=== PATIENT | female | born 1985 | race Caucasian/White ===

== ENCOUNTER 2022-05-29 14:46 | Outpatient (RCR) | payer MEDICARE, MEDICAID, SELFPAY | END 2022-05-31 23:59 | disposition home or self-care (01) | LOC: HO.PHPA 14:46 | PROVIDERS: Visit Provider Psychiatry & Neurology Psychiatry | DX: F31.32 Bipolar disorder, current episode depressed, moderate (principal); F90.9 Attention-deficit hyperactivity disorder, unspecified type; F43.10 Post-traumatic stress disorder, unspecified ==

== ENCOUNTER 2023-12-12 19:33 | Inpatient (IN) | payer MEDICARE, MEDICAID, SELFPAY ==
[2023-12-12 19:47] VITALS: BP 125/98; PULSE 95; RESP 16; TEMP 36.6; O2SAT 97; BMI 26.6
--- OUTSIDE RECORDS SUMMARY | 2023-12-12 19:58 | XMS_ITS | Continuity of Care Document ---
Author Organization [facility] Dusty Bustamante Todd lt Address [address] [place] [address]- Care Team Providers Care Fabrication Specialist Name Role Phone Asa WILCOX, Rimma Valles Primary Care Physician Encounter [facility] [place] Date(s): 01/29/22 - 02/28/22 [facility] Adult [address] [place] [address]- Allergies, Adverse Reactions, Alerts Substance Reaction Severity Status Bactrim nausea and vomitting Active Immunizations Given and Recorded Vaccine Date Status Refusal Reason SARS-CoV-2 (COVID-19) mRNA BNT-162b2 vac 02/01/21 Recorded SARS-CoV-2 (COVID-19) mRNA BNT-162b2 vac 01/11/21 Recorded tetanus-diphtheria toxoids (Td) 1 06/06/19 Given influenza virus vaccine, inactivated 05/04/19 Give n influenza virus vaccine, inactivated 2 05/23/16 Re corded influenza virus vaccine, inactivated 05/30/14 Give n influenza virus vaccine, inactivated 3 05/03/13 Gi silverio influenza virus vaccine, inactivated 4 05/25/12 Gi silverio Influenza Virus Vaccine (oldterm) 5 06/03/11 Given FluLaval (oldterm) 05/31/10 Given Influenza Inactive (IM) (oldterm) 05/01/09 Given Tet/diphth/pertussis, acel (oldterm) 12/07/08 Give n diphtheria-tetanus toxoids (DT) 08/03/98 Given 1Result Comment: [id number] 2Result Comment: [06/30/2016] [facility] 3Admin Note: given at work 4Admin Note: AT WORK 10-12-12 5Admin Note: at work Medications Adderall 5 mg oral tablet See Instructions, Please take two tablets (10mg) in the morning and one tablet (5mg) in the afternoon. Can ONLY be refilled between 07/24/2017 - 08/31/2017, # 90 tablet, 0 Refills, Maintenance, 07/24/17 13:10:30, Tablet Start Date: 07/24/17 Status: Ordered cloNIDine 0.1 mg oral tablet 0.1 mg, 1, tablet, By Mouth, Daily at bedtime, # 30 tablet, Refills 2, Tot. Refills 2, Maintenance,06/29/17 10:52:55, Route to Pharmacy Electronically, [id number], [facility]/pharmacy #[id number] Start Date: 06/29/17 Stop Date: 09/27/17 Status: Ordered KlonoPIN 1 mg oral tablet 1 tablet = 1 mg, By Mouth, Daily, PRN Anxiety, FAX to pharmacy Take 1 tablet daily as needed for anxiety, # 30 tablet, 2 Refills, Maintenance, 06/12/17 12:04:14 Start Date: 06/12/17 Status: Ordered LaMICtal 100 mg oral tablet See Instructions, Please take 100mg tablet + 200mg tablet = 300mg daily for mood, # 30 tablet, Refills 0, Tot. Refills 0, Maintenance, 10/23/17 10:16:29, Instructions Replace Required Details, Route to Pharmacy Electronically, [id number] Start Date: 10/23/17 Status: Ordered LaMICtal 200 mg oral tablet See Instructions, Please take 200mg tablet + 100mg tablet = 300mg daily for mood, # 30 tablet, 2 Refills, Maintenance, 06/12/17 12:12:59 Start Date: 06/12/17 Status: Ordered lamotrigine 25 mg oral tablet 25 mg, 1, tablet, By Mouth, 2 times a day, Refills 0, Maintenance, 01/17/21 11:37:00 EDT, Partial fill upon patient request if the prescription is for a schedule II opioid drug. Start Date: 01/17/21 Status: Ordered Left and right cocup splints Left and right cocup splints, See Instructions, # 1 pair, Refills 0, Tot. Refills 0, Maintenance, DX: Carpal papitonel syndome, 06/06/19 12:11:41 EST, Compound Start Date: 06/06/19 Status: Ordered Mirena 52 mg intrauteral device 1 each = 52 mg, Once, 0 Refills, Maintenance Start Date: 07/22/11 Status: Ordered nortriptyline 50 mg oral capsule 100 mg, 2, capsule, By Mouth, Daily at bedtime, Refills 0, Maintenance, 12/06/18 11:26:13 EDT Start Date: 12/06/18 Status: Ordered Vistaril pamoate 50 mg oral capsule 1 capsule = 50 mg, By Mouth, 4 times a day, PRN for anxiety, # 40 capsule, 0 Refills, Maintenance, 05/07/17 18:50:31, Capsule Start Date: 05/07/17 Status: Ordered Problem List Condition Effective Dates Status Health Status Inform ant ADD (attention deficit disorder)(Confirmed) 04/08/13 Active Anxiety/depression(Confirmed) Active Atopic dermatitis(Confirmed) Active Depression(Confirmed) 11/14/11 Active Irritable bowel syndrome wit h constipation(Confirmed) Active Abnormal MRI of abdomen(Confirmed) 1 11/08/13 Active Migraine(Confirmed) Active Neck pain(Confirmed) 07/06/06 Active Obesity (BMI 30-39.9)(Confirmed) Active PTSD (post-traumatic stress disorder)(Confirmed) Active Upper respiratory infection with cough and congestion(Confirmed) Active Urinary Frequency(Confirmed) Active Upper respiratory infection, viral(Confirmed) Active 1incidental 5 mm T2 hyperintense lesion Social History Social History Type Response Smoking Status Current every day leon grover entered on: 07/03/17 Sex
--- OUTSIDE RECORDS SUMMARY | 2023-12-12 19:58 | XMS_ITS | Continuity of Care Document ---
Author Organization [facility] Dusty Bustamante Todd lt Address [address] [place] [address]- Care Team Providers Care Piano Teacher Name Role Phone Asa WILCOX, Rimma Valles Primary Care Physician Encounter [facility] [place] Date(s): 10/30/21 - 11/30/21 [facility] Dusty Bustamante Adult [address] [place] [address]- Attending Physician: Asa WILCOX, Rimma Valles Allergies, Adverse Reactions, Alerts Substance Reaction Severity [...] diphtheria-tetanus toxoids (DT) 08/03/98 Given 1Result Comment: [id number] 2Result Comment: [06/30/2016] [facility] 3Admin Note: given at work 4Admin Note: AT WORK 05-14-12 5Admin Note: at work Medications Adderall 5 [...] 2, Maintenance,06/29/17 10:52:55, Route to Pharmacy Electronically, [id number], [facility]/pharmacy #[id number] Start Date: 06/29/17 Stop Date: 09/27/17 [...] Replace Required Details, Route to Pharmacy Electronically, [id number]... Start Date: 10/23/17 Status: Ordered LaMICtal 200 [...]
--- OUTSIDE RECORDS SUMMARY | 2023-12-12 19:59 | XMS_ITS | Continuity of Care Document ---
Author Organization [facility] Dusty Bustamante Todd lt Address [address] [place] [address]- Care Team Providers Care Geological Engineering Teacher Name Role Phone Asa WILCOX, Rimma Valles Primary Care Physician [phone] Encounter [facility] Date(s): 10/13/22 - 10/20/22 [facility] Dusty Bustamante Adult [address] [place] [address]- Encounter Diagnosis Annual physical exam(Discharge Diagnosis) - 10/13/22 Bipolar disorder(Discharge Diagnosis) - 10/13/22 ADD (attention deficit disorder)(Discharge Diagnosis) - 10/13/22 Depression, major, recurrent(Discharge Diagnosis) - 10/13/22 Anxiety(Discharge Diagnosis) - 10/13/22 Attending Physician: Not on Staff, Attending MD Allergies, Adverse Reactions, Alerts Substance Reaction Severity [...] (oldterm) 05/31/10 Given Influenza Inactive (IM) (oldterm) 9/29/09 Given Tet/diphth/pertussis, acel (oldterm) 12/07/08 Give n diphtheria-tetanus toxoids (DT) 08/03/98 Given 1Result Comment: [id number] 2Result Comment: [06/30/2016] [facility] 3Admin Note: given at work 4Admin Note: AT WORK 12 5Admin Note: at work Medications Adderall 5 [...] 2, Maintenance,06/29/17 10:52:55, Route to Pharmacy Electronically, [id number], [facility]/pharmacy #[id number] Start Date: 06/29/17 Stop Date: 09/27/17 Status: Ordered KlonoPIN 1 mg oral tablet 1 tablet = 1 mg, By Mouth, Daily, PRN Anxiety, FAX to pharmacy Take 1 tablet daily as needed for anxiety, # 30 tablet, 2 Refills, Maintenance, 06/12/17 12:04:14 Start Date: 06/12/17 Status: Ordered LaMICtal 200 mg oral tablet See Instructions, Please take 200mg tablet + 100mg tablet = 300mg daily for mood, # 30 tablet, 2 Refills, Maintenance, 06/12/17 12:12:59 Start Date: 06/12/17 Status: Ordered Mirena 52 mg intrauteral device [...] Date: 05/07/17 Status: Ordered Problem List Condition Confirmation Course Effective Dates Status Health St atus Informant ADD (attention deficit disorder) Confirmed 04/08/13 Active Anxiety Confirmed Active Atopic dermatitis Confirmed Active Irritable bowel syndrome with constipation Confirmed Active Abnormal MRI of abdomen 1 Confirmed 11/08/13 Active Migraine Confirmed Active Obesity (BMI 30-39.9) Confirmed Active PTSD (post-traumatic stress disorder) Confirmed Active Depression, major, recurrent Confirmed Active 1incidental 5 mm T2 hyperintense lesion Diagnosis Diagnosis Type Effective Dates Health Status Cl inical Service Informant Annual physical exam Discharge Diagnosis 10/13/22 Bipolar disorder Discharge Diagnosis 10/13/22 ADD (attention deficit disorder) Discharge Diagnosis 10/13/22 Depression, major, recurrent Discharge Diagnosis 10/13/22 Anxiety Discharge Diagnosis 10/13/22 Vital Signs Most recent to oldest [Reference Range]: 1 Height 160.02 cm (10/13/22 1:34 PM) Weight 73.4 kg (10/13/22 1:34 PM) Oxygen Saturation [94-100 %] 100 % (10/13/22 1:34 PM) Pulse Rate [55-90 bpm] 93 bpm *H* (10/13/22 1:34 PM) Body Mass Index [18.5-24.99 kg/m2] 28.66 kg/m2 *H* (10/13/22 1:34 PM) Blood Pressure [90-138/55-84 mm Hg] 101/ 66mm Hg (10/13/22 1:34 PM) Blood pressure sites Arm, left (10/13/22 1:34 PM) Weight Obtained Via Standing scale (10/13/22 1:34 PM) Social History Social History Type Response Smoking Status Current every day leon grover entered on: 07/03/17 Sex Patient Care team information Care Team Personnel Name: Aas WILCOX, Rimma Valles Position: S PCO Associate Professional Member Role: PCP Address: Address: [address] [place] [address]- Care Team Related Persons Name: ABIDA, CECELIA Address: home [address] [address]
--- OUTSIDE RECORDS SUMMARY | 2023-12-12 19:59 | XMS_ITS | Continuity of Care Document ---
Author Organization [facility] Dusty Bustamante Todd lt Address [address] [place] [address]- Care Team Providers Care Wood Processing Worker Name Role Phone Asa WILCOX, Rimma Valles Primary Care Physician [phone] Encounter [facility] [place] Date(s): 06/30/22 - 08/17/22 [facility] Adult [address] [place] [address]- Attending Physician: Not on Staff, Attending MD [...] diphtheria-tetanus toxoids (DT) 08/03/98 Given 1Result Comment: [id number] 2Result Comment: [06/30/2016] [facility] 3Admin Note: [...] 2, Maintenance,06/29/17 10:52:55, Route to Pharmacy Electronically, [id number], [facility]/pharmacy #[id number] Start Date: 06/29/17 Stop Date: [...] Replace Required Details, Route to Pharmacy Electronically, [id number] Start Date: 10/23/17 Status: Ordered LaMICtal 200 [...] 0, Tot. Refills 0, Maintenance, DX: Carpal tnnel syndome, 06/06/19 12:11:41 EST, Compound Start Date: [...] ADD (attention deficit disorder) Confirmed 04/08/13 Active Anxiety/depression Confirmed Active Atopic dermatitis Confirmed Active Depression Confirmed 11/14/11 Active Irritable bowel syndrome with constipation Confirmed Active Abnormal MRI of abdomen 1 Confirmed 11/08/13 Active Migraine Confirmed Active Neck pain Confirmed 07/06/06 Active Obesity (BMI 30-39.9) Confirmed Active PTSD (post-traumatic stress disorder) Confirmed Active Upper respiratory infection with cough and congestion Confirmed Active Urinary Frequency Confirmed Active Upper respiratory infection, viral Confirmed Active 1incidental 5 mm T2 hyperintense lesion Social History Social History Type Response Smoking Status Current every day leon grover entered on: 07/03/17 Sex Patient Care team information Care Team Personnel Name: Asa WILCOX, Rimma Valles Position: S PCO Associate Professional Member Role: PCP Address: Address: [address] [place] [address]- Care Team Related Persons Name: CECELIA TAI Address: [address] [address]
--- OUTSIDE RECORDS SUMMARY | 2023-12-12 19:59 | XMS_ITS | Continuity of Care Document ---
Author Organization [facility] Dusty Bustamante Todd lt Address [address] [place] [address]- Care Team Providers Care Giant Tire Repairer Name Role Phone Asa WILCOX, Rimma Valles Primary Care Physician [phone] Encounter [facility] Date(s): 04/27/23 - 05/28/23 [facility] Dusty Bustamante Adult [address] [place] [address]- Attending Physician: Not on Staff, Attending MD [...] diphtheria-tetanus toxoids (DT) 08/03/98 Given 1Result Comment: [id number] 2Result Comment: [06/30/2016] [facility] 3Admin Note: [...] 2, Maintenance,06/29/17 10:52:55, Route to Pharmacy Electronically, [id number], [facility]/pharmacy #[id number] Start Date: 06/29/17 Stop [...] Active Abnormal MRI of abdomen 1 Confirmed 4/8/14 Active Migraine Confirmed Active Obesity (BMI 30-39.9) Confirmed Active PTSD (post-traumatic stress disorder) Confirmed Active Depression, major, recurrent Confirmed Active 1incidental 5 mm T2 hyperintense lesion Social History Social History Type Response Smoking Status Current every day leon willisprashant entered on: 07/03/17 Sex Patient Care team information Care Team Personnel Name: Asa WILCOX, Rimma Valles Position: S PCO Associate Professional Member Role: PCP Address: Address: [address] [place] [address]- Care Team Related Persons Name: CECELIA TAI Address: home [address] [place] [address]
--- OUTSIDE RECORDS SUMMARY | 2023-12-12 19:59 | XMS_ITS | Continuity of Care Document ---
Author Organization [facility] Todd lt Address [address] [place] [address]- Care Team Providers Care Inspector Of Dredging Name Role Phone Car MARTÍNEZ, Zander Nina Primary Care Physician Encounter [facility] Date(s): 03/24/21 - 04/23/21 [facility] Adult [address] [place] [address]- Allergies, Adverse Reactions, Alerts Substance Reaction Severity Status Bactrim nausea and vomitting Active Immunizations Given and Recorded Vaccine Date Status Refusal Reason SARS-CoV-2 (COVID-19) mRNA BNT-162b2 vac 01/11/21 Recorded [...] diphtheria-tetanus toxoids (DT) 08/03/98 Given 1Result Comment: [id number] 2Result Comment: [06/30/2016] [facility] 3Admin Note: given at work 4Admin Note: AT WORK --12 5Admin Note: at work Medications Adderall 5 [...] 2, Maintenance,06/29/17 10:52:55, Route to Pharmacy Electronically, [id number], [facility]/pharmacy #[id number] Start Date: 06/29/17 Stop [...] Replace Required Details, Route to Pharmacy Electronically, [id number] Start Date: 10/23/17 Status: Ordered LaMICtal 200 [...]
--- OUTSIDE RECORDS SUMMARY | 2023-12-12 19:59 | XMS_ITS | Continuity of Care Document ---
Author Organization [facility] Dusty Bustamante Todd lt Address [address] [place] [address]- Care Team Providers Care Microsoft Crm Developer Name Role Phone Asa WILCOX, Rimma Valles Primary Care Physician Encounter [facility] Date(s): 05/15/23 - 06/14/23 [facility] Dusty Bustamante Adult [address] [place] [address]- Allergies, Adverse Reactions, Alerts Substance Reaction Severity [...] diphtheria-tetanus toxoids (DT) 08/03/98 Given 1Result Comment: [id number] 2Result Comment: [06/30/2016] [facility] 3Admin Note: [...] 2, Maintenance,06/29/17 10:52:55, Route to Pharmacy Electronically, [id number], [facility]/pharmacy #[id number] Start Date: [...] Associate Professional Member Role: PCP Address: Address: [address] [place] [address]- Care Team Related Persons Name: CECELIA TAI Address: home [address] [place] [address]
--- OUTSIDE RECORDS SUMMARY | 2023-12-12 19:59 | XMS_ITS | Continuity of Care Document ---
Author Organization [facility] Dusty Bustamante Todd lt Address [address] [place] [address]- Care Team Providers Care Plant Electrician Name Role Phone Asa WILCOX, Rimma Valles Primary Care Physician [phone] [place] [facility] [place] 06[place]22 - 07/31/22 [facility] Adult [address] [place] [address]- Attending Physician: Michel Henry MD Allergies, Adverse Reactions, Alerts Substance Reaction [...] diphtheria-tetanus toxoids (DT) 08/03/98 Given 1Result Comment: [id number] 2Result Comment: [06/30/2016] [facility] 3Admin Note: [...] 2, Maintenance,06/29/17 10:52:55, Route to Pharmacy Electronically, [id number], [facility]/pharmacy #[id number] Start Date: 06/29/17 Stop Date: [...] Replace Required Details, Route to Pharmacy Electronically, [id number] Start Date: 10/23/17 Status: Ordered LaMICtal 200 [...] Associate Professional Member Role: PCP Address: Address: [address] [place] [address]- Care Team Related Persons Name: CECELIA TAI Address: [address] [address]
--- OUTSIDE RECORDS SUMMARY | 2023-12-12 19:59 | XMS_ITS | Continuity of Care Document ---
Author Organization [facility] Robby Todd lt Address [address] [place] [address]- Care Team Providers Care Benefit Authorizer Name Role Phone Zander Yoon MD Primary Care Physician Encounter [facility] [place] Date(s): 05/31/21 - 06/30/21 [facility] Adult [address] [place] [address]- Attending Physician: Admtr, Ar8 Allergies, Adverse Reactions, Alerts Substance Reaction Severity [...] diphtheria-tetanus toxoids (DT) 08/03/98 Given 1Result Comment: [id number] 2Result Comment: [06/30/2016] [facility] 3Admin Note: [...] 2, Maintenance,06/29/17 10:52:55, Route to Pharmacy Electronically, [id number], [facility]/pharmacy #[id number] Start Date: 06/29/17 Stop Date: 09/27/17 [...] Replace Required Details, Route to Pharmacy Electronically, [id number] Start Date: 10/23/17 Status: Ordered LaMICtal 200 [...] Active 1incidental 5 mm T2 hyperintense lesion Vital Signs Most recent to oldest [Reference Range]: 1 Height 160.02 cm (05/01/09 3:29 PM) Pulse Rate [55-90 bpm] 100 bpm *H* (05/01/09 3:29 PM) Blood Pressure [90-138/55-84 mm Hg] 124/ 80mm Hg (05/01/09 3:29 PM) Respiratory Rate [16-30 br/min] 14 br/mi n *L* (05/01/09 3:29 PM) Blood pressure sites Arm, left (05/01/09 3:29 PM) Social History Social History Type Response Smoking Status Current every day leon grover entered on: 07/03/17 Sex
--- OUTSIDE RECORDS SUMMARY | 2023-12-12 19:59 | XMS_ITS | Continuity of Care Document ---
Author Organization [facility] Dusty Bustamante Todd lt Address [address] [place] [address]- Care Team Providers Care Processing Lead Name Role Phone Asa WILCOX, Rimma Valles Primary Care Physician Encounter [facility] Date(s): 08/26/23 - 09/25/23 [facility] Dusty Bustamante Adult [address] [place] [address]- Allergies, Adverse Reactions, Alerts Substance Reaction Severity [...] diphtheria-tetanus toxoids (DT) 08/03/98 Given 1Result Comment: [id number] 2Result Comment: [06/30/2016] [facility] 3Admin Note: [...] 2, Maintenance,06/29/17 10:52:55, Route to Pharmacy Electronically, [id number], [facility]/pharmacy #[id number] Start Date: 06/29/17 Stop [...] Associate Professional Member Role: PCP Address: Address: [address] [place] [address]- Care Team Related Persons Name: CECELIA TAI Address: home [address] [place] [address]
--- OUTSIDE RECORDS SUMMARY | 2023-12-12 19:59 | XMS_ITS | Continuity of Care Document ---
Author Organization [facility] Robby Todd lt Address [address] [place] [address]- Care Team Providers Care Process Designer Name Role Phone Zander Yoon MD Primary Care Physician [place] [facility] [place]s): 01/17/21 - 01/24/21 [facility] Adult [address] [place] [address]- Encounter Diagnosis Bipolar disorder(Discharge Diagnosis) - 01/17/21 Attending Physician: Zander Yoon MD Allergies, Adverse Reactions, Alerts Substance Reaction [...] diphtheria-tetanus toxoids (DT) 08/03/98 Given 1Result Comment: [id number] 2Result Comment: [06/30/2016] [facility] 3Admin Note: [...] 2, Maintenance,06/29/17 10:52:55, Route to Pharmacy Electronically, [id number], [facility]/pharmacy #[id number] Start Date: 06/29/17 Stop [...] Replace Required Details, Route to Pharmacy Electronically, [id number] Start Date: 10/23/17 Status: Ordered LaMICtal 200 [...] Dates Health Status Cl inical Service Informant Bipolar disorder Discharge Diagnosis 01/17/21 Vital Signs Most recent to oldest [Reference Range]: 1 Height 160.02 cm (01/17/21 11:32 AM) Social History Social History Type Response Smoking Status Current every day leon grover entered on: 07/03/17 Sex
--- OUTSIDE RECORDS SUMMARY | 2023-12-12 19:59 | XMS_ITS | Continuity of Care Document ---
Author Organization [facility] Dusty Bustamante Todd lt Address [address] [place] [address]- Care Team Providers Care Imagery Analyst Name Role Phone Asa WILCOX, Rimma Valles Primary Care Physician En[place] [facility] [place] Date(s): 10/11/21 - 11/10/21 [facility] Dusty Bustamante Adult [address] [place] [address]- Allergies, Adverse Reactions, Alerts Substance Reaction Severity [...] diphtheria-tetanus toxoids (DT) 08/03/98 Given 1Result Comment: [id number] 2Result Comment: [06/30/2016] [facility] 3Admin Note: [...] 2, Maintenance,06/29/17 10:52:55, Route to Pharmacy Electronically, [id number], [facility]/pharmacy #[id number] Start Date: 06/29/17 Stop Date: [...] Replace Required Details, Route to Pharmacy Electronically, [id number] Start Date: 10/23/17 Status: Ordered LaMICtal 200 [...]
--- OUTSIDE RECORDS SUMMARY | 2023-12-12 19:59 | XMS_ITS | Continuity of Care Document ---
Author Organization [facility] Todd lt Address [address] [place] [address]- Care Team Providers Care Bus Or Truck Garage Mechanic Name Role Phone Zander Yoon MD Primary Care Physician Encounter [facility] [place] Date(s): 05/30/21 - 06/30/21 [facility] Adult [address] [place] [address]- Attending Physician: Zander Yoon MD Allergies, Adverse [...] diphtheria-tetanus toxoids (DT) 08/03/98 Given 1Result Comment: [id number] 2Result Comment: [06/30/2016] [facility] 3Admin Note: [...] 2, Maintenance,06/29/17 10:52:55, Route to Pharmacy Electronically, [id number], [facility]/pharmacy #[id number] Start Date: 06/29/17 Stop Date: [...] Replace Required Details, Route to Pharmacy Electronically, [id number] Start Date: 10/23/17 Status: Ordered LaMICtal 200 [...]
--- OUTSIDE RECORDS SUMMARY | 2023-12-12 19:59 | XMS_ITS | Continuity of Care Document ---
Author Organization [facility] Dusty Bustamante Todd lt Address [address] [place] [address]- Care Team Providers Care Senior Research Scientist Name Role Phone Asa WILCOX, Rimma Valles Primary Care Physician Encounter [facility] Date(s): 10/01/22 - 10/08/22 [facility] Dusty Bustamante Adult [address] [place] [address]- Encounter Diagnosis Screening for thyroid disorder(Discharge Diagnosis) - 10/01/22 Attending Physician: Robert Hernandez Referring Physician: Rod Gold MD Allergies, Adverse Reactions, Alerts Substance Reaction [...] diphtheria-tetanus toxoids (DT) 08/03/98 Given 1Result Comment: [id number] 2Result Comment: [06/30/2016] [facility] 3Admin Note: [...] 2, Maintenance,06/29/17 10:52:55, Route to Pharmacy Electronically, [id number], [facility]/pharmacy #[id number] Start Date: 06/29/17 Stop Date: [...] Replace Required Details, Route to Pharmacy Electronically, [id number]... Start Date: 10/23/17 Status: Ordered LaMICtal 200 [...] Diagnosis Diagnosis Type Effective Dates Health Status inical Service Informant Screening for thyroid disorder Discharge Diagnosis 10/01/22 Vital Signs Most recent to oldest [Reference Range]: 1 Height 160.02 cm (10/01/22 3:28 PM) Weight 73.1 kg (10/01/22 3:28 PM) Oxygen Saturation [94-100 %] 100 % (10/01/22 3:28 PM) Pulse Rate [55-90 bpm] 89 bpm (10/01/22 3:28 PM) Body Mass Index [18.5-24.99 kg/m2] 28.55 kg/m2 *H* (10/01/22 3:28 PM) Blood Pressure [90-138/55-84 mm Hg] 112/ 76mm Hg (10/01/22 3:28 PM) Temperature [96.8-100.4 DegF] 98.1 DegF (10/01/22 3:28 PM) Mode of Delivery (Oxygen) Room air (10/01/22 3:28 PM) Blood pressure sites Arm, left (10/01/22 3:28 PM) Temperature Route Temporal (10/01/22 3:28 PM) Weight Obtained Via Standing scale (10/01/22 3:28 PM) Social History Social History Type Response Smoking Status Current every day leon grover entered on: 07/03/17 Sex Patient Care team information Care Team Personnel Name: Asa WILCOX, Rimma Valles Position: [facility] PCO Associate Professional Member Role: PCP Address: Address: [address] [place] [address]- Care Team Related Persons Name: CECELIA TAI Address: home [address] [place] [address] UM
--- OUTSIDE RECORDS SUMMARY | 2023-12-12 19:59 | XMS_ITS | Continuity of Care Document ---
Author Organization [facility] Dusty Bustamante Todd lt Address [address] [place] [address]- Care Team Providers Care Bull Bucker Name Role Phone Asa WILCOX, Rimma Valles Primary Care Physician Encounter [facility] Date(s): 04/02/22 - 05/02/22 [facility] Dusty Bustamante Adult [address] [place] [address]- Attending Physician: Admtr, Ar8 Allergies, Adverse Reactions, [...] diphtheria-tetanus toxoids (DT) 08/03/98 Given 1Result Comment: [id number] 2Result Comment: [06/30/2016] [facility] 3Admin Note: [...] 2, Maintenance,06/29/17 10:52:55, Route to Pharmacy Electronically, [id number], [facility]/pharmacy #[id number] Start Date: 06/29/17 Stop Date: [...] Replace Required Details, Route to Pharmacy Electronically, [id number]... Start Date: 10/23/17 Status: Ordered LaMICtal 200 [...] on: 07/03/17 Sex Patient Care team information Personnel Name: Asa WILCOX, Rimma Valles Address: Address: [address] [place] [address]- [place]
--- OUTSIDE RECORDS SUMMARY | 2023-12-12 19:59 | XMS_ITS | Continuity of Care Document ---
Author Organization [facility] Dusty Bustamante Todd lt Address [address] [place] [address]- Care Team Providers Care Ripening Room Hand Name Role Phone Asa WILCOX, Rimma Valles Primary Care Physician [phone] Encounter [facility] Date(s): 01/02/22 - 02/06/22 [facility] Robby Adult [address] [place] [address]- Attending Physician: Asa WILCOX, Rimma Valles Allergies, [...] diphtheria-tetanus toxoids (DT) 08/03/98 Given 1Result Comment: [id number] 2Result Comment: [06/30/2016] [facility] 3Admin Note: [...] 2, Maintenance,06/29/17 10:52:55, Route to Pharmacy Electronically, [id number], [facility]/pharmacy #[id number] Start Date: 06/29/17 Stop Date: [...] Replace Required Details, Route to Pharmacy Electronically, [id number] Start Date: 10/23/17 Status: Ordered LaMICtal 200 [...]
--- OUTSIDE RECORDS SUMMARY | 2023-12-12 19:59 | XMS_ITS | Continuity of Care Document ---
Author Organization [facility] Dusty Bustamante Todd lt Address [address] [place] [address]- Care Team Providers Care Tank Tester Name Role Phone Asa WILCOX, Rimma Valles Primary Care Physician Encounter [facility] Date(s): 05/13/23 - 06/12/23 [facility] Dusty Bustamante Adult [address] [place] [address]- Attending Physician: Admtr, Ar8 Allergies, Adverse Reactions, [...] diphtheria-tetanus toxoids (DT) 08/03/98 Given 1Result Comment: [id number] 2Result Comment: [06/30/2016] [facility] 3Admin Note: given at work 4Admin Note: AT WORK 05-14- 5Admin Note: at work Medications Adderall 5 [...] 2, Maintenance,06/29/17 10:52:55, Route to Pharmacy Electronically, [id number], [facility]/pharmacy #[id number] Start Date: 06/29/17 [...] Response Smoking Status Current every day leon reilly entered on: 07/03/17 Sex EKG study * Event Display: EKG Authored Date: [id number] Laboratory * Reena Lance: PERFORM Event Display: Laboratory Results Scanned Authored Date: [id number] Radiology * Ophelia Costa.: PERFORM Event Display: Radiology Results Scanned Authored Date: [id number] Patient Care team information Care Team Personnel Name: Asa WILCOX, Rimma Valles Position: S PCO Associate Professional Member Role: PCP Address: Address: [address] [place] [address]- Care Team Related Persons Name: CECELIA TAI Address: home [address] [place] [address]
--- OUTSIDE RECORDS SUMMARY | 2023-12-12 19:59 | XMS_ITS | Continuity of Care Document ---
Author Organization [facility] Dusty Bustamante Todd lt Address [address] [place] [address]- Care Team Providers Care Education General Manager Name Role Phone Asa WILCOX, Rimma Valles Primary Care Physician Encounter [facility] [place] Date(s): 10/06/22 - 11/05/22 [facility] Dusty Bustamante Adult [address] [place] [address]- Allergies, Adverse Reactions, Alerts Substance Reaction Severity [...] diphtheria-tetanus toxoids (DT) 08/03/98 Given 1Result Comment: [id number] 2Result Comment: [06/30/2016] [facility] 3Admin Note: [...] 2, Maintenance,06/29/17 10:52:55, Route to Pharmacy Electronically, [id number], [facility]/pharmacy #[id number] Start Date: 06/29/17 Stop Date: 09/27/17 [...] Associate Professional Member Role: PCP Address: Address: [address] [place] [address]- Care Team Related Persons Name: CECELIA TAI Address: home [address] [place] [address]
--- OUTSIDE RECORDS SUMMARY | 2023-12-12 19:59 | XMS_ITS | Continuity of Care Document ---
Author Organization [facility] Dusty Bustamante Todd lt Address [address] [place] [address]- Care Team Providers Care Transaction Processor Name Role Phone Zander Yoon MD Primary Care Physician Encounter [facility] Date(s): 08/08/19 - 08/18/19 [facility] Adult [address] [place] [address]- [facility] Attending Physician: Admtr, Ar8 Allergies, Adverse Reactions, Alerts Substance Reaction Severity Status Bactrim nausea and vomitting Active Immunizations Given and Recorded Vaccine Date Status Refusal Reason tetanus-diphtheria toxoids (Td) 1 06/06/19 Given influenza [...] diphtheria-tetanus toxoids (DT) 08/03/98 Given 1Result Comment: [id number] 2Result Comment: [06/30/2016] [facility] 3Admin Note: [...] 2, Maintenance,06/29/17 10:52:55, Route to Pharmacy Electronically, [id number], [facility]/pharmacy #[id number] Start Date: 06/29/17 Stop Date: 09/27/17 Status: Ordered Diflucan 150 mg oral tablet 1 tablet = 150 mg, By Mouth, Every week, for 4 week(s), # 4 tablet, 0 Refills, Acute 09/05/19 10:25:00 EST, 08/08/19 10:25:00 EST, Tablet, [facility]/pharmacy #[id number], 160.02, cm, 08/08/19 10:04:00 EST, Height Start Date: 08/08/19 Stop Date: 09/05/19 Status: Ordered KlonoPIN 1 mg oral tablet [...] Replace Required Details, Route to Pharmacy Electronically, [id number] Start Date: 10/23/17 Status: Ordered LaMICtal 200 mg oral tablet See Instructions, Please take 200mg tablet + 100mg tablet = 300mg daily for mood, # 30 tablet, 2 Refills, Maintenance, 06/12/17 12:12:59 Start Date: 06/12/17 Status: Ordered Left and right cocup splints Left and right cocup splints, See Instructions, # 1 pair, Refills 0, Tot. Refills 0, Maintenance, DX: Carpal tnnel syndome, 06/06/19 12:11:41 EST, Compound Start Date: 06/06/19 Status: Ordered Lexapro 5 mg oral tablet See Instructions, take half a tablet x 1wk for symptomatic relief. If uneffective, may retry half atablet x 1wk., # 10 tablet, 0 Refills, Maintenance, 07/17/17 14:33:03, Tablet Start Date: 07/17/17 Status: Ordered Mirena 52 mg intrauteral device 1 each = 52 mg, Once, 0 Refills, Maintenance Start Date: 07/22/11 Status: Ordered nortriptyline 50 mg oral capsule 100 mg, 2, capsule, By Mouth, Daily at bedtime, Refills 0, Maintenance, 12/06/18 11:26:13 EDT Start Date: 12/06/18 Status: Ordered OXcarbazepine 150 mg oral tablet 150 mg, 1, tablet, By Mouth, 2 times a day, Refills 0, Maintenance, 12/06/18 11:27:17 EDT Start Date: 12/06/18 Status: Ordered Vistaril [...]
--- OUTSIDE RECORDS SUMMARY | 2023-12-12 19:59 | XMS_ITS | Continuity of Care Document ---
Author Organization [facility] Robby Todd Address [address] [place] [address]- Care Team Providers Care Structural Steel Ironworker Name Role Phone Asa WILCOX, Rimma Valles Primary Care Physician [phone] Encounter [facility] [place] Date(s): 11/17/23 - 11/24/23 [facility] Adult [address] [place] [address]- Encounter Diagnosis Acute sinusitis(Discharge Diagnosis) - 11/17/23 Attending Physician: Low SHAFFER-CAR WHACKER-CTalia Allergies, Adverse Reactions, Alerts Substance Reaction Severity Status Bactrim nausea and vomitting Active Immunizations Given and Recorded Vaccine Date Status Refusal Reason influenza virus vaccine, inactivated 09/14/23 Jesus rded influenza virus vaccine, inactivated 05/04/19 Give n influenza virus vaccine, inactivated 1 05/23/16 Re corded influenza virus vaccine, inactivated 05/30/14 Give n influenza virus vaccine, inactivated 2 05/03/13 Gi silverio influenza virus vaccine, inactivated 3 05/25/12 Gi silverio SARS-CoV-2 (COVID-19) mRNA BNT-162b2 vac 02/01/21 Recorded SARS-CoV-2 (COVID-19) mRNA BNT-162b2 vac 01/11/21 Recorded tetanus-diphtheria toxoids (Td) 4 06/06/19 Given Influenza Virus Vaccine (oldterm) 5 06/03/11 Given FluLaval (oldterm) 05/31/10 Given Influenza Inactive (IM) (oldterm) 05/01/09 Given Tet/diphth/pertussis, acel (oldterm) 12/07/08 Give n diphtheria-tetanus toxoids (DT) 08/03/98 Given 1Result Comment: [06/30/2016] [facility] 2Admin Note: given at work 3Admin Note: AT WORK 05-14-12 4Result Comment: [id number] 5Admin Note: at work Medications Adderall 5 [...] 2, Maintenance,06/29/17 10:52:55, Route to Pharmacy Electronically, [id number], [facility]/pharmacy #[id number] [...] Dates Health Status Cl inical Service Informant Acute sinusitis Discharge Diagnosis 11/17/23 Social History Social History Type Response Smoking Status Current every day reilly entered on: 07/03/17 Sex Patient Care team information Care Team Personnel Name: Asa WILCOX, Rimma Valles Position: [facility] PCO Associate Professional Member Role: PCP Address: Address: [address] [place] [address]- Care Team Related Persons Name: CECELIA TAI Address: home [address] [place] [address]
--- OUTSIDE RECORDS SUMMARY | 2023-12-12 19:59 | XMS_ITS | Continuity of Care Document ---
Author Organization [facility] Dusty Bustamante Todd lt Address [address] [place] [address]- Care Team Providers Care Pattern Carrier Name Role Phone Asa WILCOX, Rimma Valles Primary Care Physician [phone] [facility] Date(s): 07/18/22 - 08/17/22 [facility] Dusty Bustamante Adult [address] [place] [address]- Attending Physician: Admtr, Ar8 Allergies, Adverse Reactions, [...] diphtheria-tetanus toxoids (DT) 08/03/98 Given 1Result Comment: [id number] 2Result Comment: [06/30/2016] [facility] 3Admin Note: [...] 2, Maintenance,06/29/17 10:52:55, Route to Pharmacy Electronically, [id number], [facility]/pharmacy #[id number] Start Date: 06/29/17 Stop [...] Replace Required Details, Route to Pharmacy Electronically, [id number] Start Date: 10/23/17 Status: Ordered LaMICtal 200 [...] day leon grover entered on: 07/03/17 Sex EKG study * Event Display: EKG Authored Date: [id number] Note * Ophelia Costa: PERFORM Event Display: Radiology Results Scanned Authored Date: [id number] * Reena Lance: PERFORM Event Display: Laboratory Results Scanned Authored Date: [id number] Patient Care team information Care Team Personnel Name: Asa WILCOX, Rimma Valles Position: S PCO Associate Professional Member Role: PCP Address: Address: [address] [place] [address]- Care Team Related Persons Name: CECELIA TAI Address: home [address] [place] [address]
--- OUTSIDE RECORDS SUMMARY | 2023-12-12 19:59 | XMS_ITS | Continuity of Care Document ---
Author Organization [facility] Dusty Bustamante Todd lt Address [address] [place] [address]- Care Team Providers Care Black Topper Name Role Phone Asa WILCOX, Rimma Valles Primary Care Physician [phone] Encounter [facility] Date(s): 05/18/23 - 06/17/23 [facility] Dusty Bustamante Adult [address] [place] [address]- Allergies, Adverse Reactions, Alerts Substance Reaction Severity [...] diphtheria-tetanus toxoids (DT) 08/03/98 Given 1Result Comment: [id number] 2Result Comment: [06/30/2016] [facility] 3Admin Note: [...] 2, Maintenance,06/29/17 10:52:55, Route to Pharmacy Electronically, [id number], [facility]/pharmacy #[id number] Start [...] Associate Professional Member Role: PCP Address: Address: [address] [place] [address]- Care Team Related Persons Name: CECELIA TAI Address: home [address] [place] [address]
--- OUTSIDE RECORDS SUMMARY | 2023-12-12 19:59 | XMS_ITS | Continuity of Care Document ---
Author Organization [facility] Robby Todd Address [address] [place] [address]- Care Team Providers Care Product Safety Expert Name Role Phone Asa WILCOX, Rimma Valles Primary Care Physician [place] [id number] Date(s): 07/28/23 - 11/25/23 [facility] Adult [address] [place] [address]- Attending Physician: Asa WILCOX, Rimma Valles Referring Physician: Rod Gold MD Allergies, Adverse [...] 3Admin Note: AT WORK 05-14-12 4Result Comment: [id number] 5Admin Note: at work Medications Adderall 5 [...] 2, Maintenance,06/29/17 10:52:55, Route to Pharmacy Electronically, [id number], [facility]/pharmacy #[id number] Start Date: 06/29/17 Stop Date: [...] Personnel Name: Asa WILCOX, Rimma Valles Position: [facility] PCO Associate Professional Member Role: PCP Address: Address: [address] [place] [address]- Care Team Related Persons Name: CECELIA TAI Address: home [address] [place] [address]
--- OUTSIDE RECORDS SUMMARY | 2023-12-12 19:59 | XMS_ITS | Continuity of Care Document ---
Author Organization [facility] Dusty Bustamante Todd lt Address [address] [place] [address]- Care Team Providers Care Learn To Swim Instructor Name Role Phone Asa WILCOX, Rimma Valles Primary Care Physician [phone] Encounter [facility] Date(s): 05/13/23 - 05/20/23 [facility] Dusty Bustamante Adult [address] [place] [address]- Attending Physician: Robert Hernandez Allergies, Adverse Reactions, Alerts Substance Reaction Severity [...] diphtheria-tetanus toxoids (DT) 08/03/98 Given 1Result Comment: [id number] 2Result Comment: [06/30/2016] [facility] 3Admin Note: [...] 2, Maintenance,06/29/17 10:52:55, Route to Pharmacy Electronically, [id number], [facility]/pharmacy #[id number] Start Date: 06/29/17 [...] 06/12/17 12:12:59 Start Date: 06/12/17 Status: Ordered metroNIDAZOLE 500 mg oral tablet 1 tablet = 500 mg, By Mouth, Every 12 hours, for 7 days, # 14 tablet, 0 Refills, Acute 05/25/23 8:27:00 EDT, 05/18/23 8:27:00 EDT, Tablet, [facility]/pharmacy #[id number], Partial fill upon patient request if theprescription is for a schedule II opioid drug., 160... Start Date: 05/18/23 Stop Date: 05/25/23 Status: Ordered Mirena 52 mg intrauteral device [...] oldest [Reference Range]: 1 Height 160.02 cm (05/13/23 10:52 AM) Weight 75.7 kg (05/13/23 10:52 AM) Oxygen Saturation [94-100 %] 100 % (05/13/23 10:52 AM) Pulse Rate [55-90 bpm] 93 bpm *H* (05/13/23 10:52 AM) Body Mass Index [18.5-24.99 kg/m2] 29.56 kg/m2 *H* (05/13/23 10:52 AM) Blood Pressure [90-138/55-84 mm Hg] 99/6 3mm Hg (05/13/23 10:52 AM) Temperature [96.8-100.4 DegF] 97.0 DegF (05/13/23 10:52 AM) Blood pressure sites Arm, left (05/13/23 10:52 AM) Temperature Route Oral (05/13/23 10:52 AM) Weight Obtained Via Standing scale (05/13/23 10:52 AM) Social History Social History Type Response Smoking Status Current every day leon grover entered on: 07/03/17 Sex Patient Care team information Care Team Personnel Name: Asa WILCOX, Rimma Valles Position: S PCO Associate Professional Member Role: PCP Address: Address: [address] [place] [address]- Care Team Related Persons Name: CECELIA TAI Address: [address] [address]
--- OUTSIDE RECORDS SUMMARY | 2023-12-12 19:59 | XMS_ITS | Continuity of Care Document ---
Author Organization [facility] Dusty Bustamante Todd lt Address [address] [place] [address]- Care Team Providers Care Child Development Professor Name Role Phone Asa WILCOX, Rim[place] Valles Primary Care Physician [phone] Encounter [facility] Date(s): 10/31/21 - 11/30/21 [facility] Dusty Bustamante Adult [address] [place] [address]- Attending Physician: Admtr, Ar8 Allergies, Adverse Reactions, [...] diphtheria-tetanus toxoids (DT) 08/03/98 Given 1Result Comment: [id number] 2Result Comment: [06/30/2016] [facility] 3Admin Note: [...] 2, Maintenance,06/29/17 10:52:55, Route to Pharmacy Electronically, [id number], [facility]/pharmacy #[id number] Start Date: 06/29/17 [...] Replace Required Details, Route to Pharmacy Electronically, [id number] Start Date: 10/23/17 Status: Ordered LaMICtal 200 [...]
--- OUTSIDE RECORDS SUMMARY | 2023-12-12 19:59 | XMS_ITS | Continuity of Care Document ---
Author Organization [facility] Dusty Bustamante Todd lt Address [address] [place] [address]- Care Team Providers Care Package Line Operator Name Role Phone Asa WILCOX, Rimma Valles Primary Care Physician [phone] Encounter [facility] Date(s): 05/12/23 - 06/11/23 [facility] Dusty Bustamante Adult [address] [place] [address]- Allergies, Adverse Reactions, Alerts Substance Reaction Severity [...] diphtheria-tetanus toxoids (DT) 08/03/98 Given 1Result Comment: [id number] 2Result Comment: [06/30/2016] [facility] 3Admin Note: [...] 2, Maintenance,06/29/17 10:52:55, Route to Pharmacy Electronically, [id number], [facility]/pharmacy #[id number] Start Date: 06/29/17 [...] Associate Professional Member Role: PCP Address: Address: [address] [place] [address]- Care Team Related Persons Name: CECELIA TAI Address: home [address] [place] [address]
--- OUTSIDE RECORDS SUMMARY | 2023-12-12 19:59 | XMS_ITS | Continuity of Care Document ---
Author Organization [facility] Dusty Bustamante Todd lt Address [address] [place] [address]- Care Team Providers Care Resource Engineer Name Role Phone Asa WILCOX, Rim[place] Valles Primary Care Physician Encounter [facility] Date(s): 05/14/23 - 06/13/23 [facility] Dusty Bustamante Adult [address] [place] [address]- Allergies, Adverse Reactions, Alerts Substance Reaction Severity [...] diphtheria-tetanus toxoids (DT) 08/03/98 Given 1Result Comment: [id number] 2Result Comment: [06/30/2016] [facility] 3Admin Note: [...] 2, Maintenance,06/29/17 10:52:55, Route to Pharmacy Electronically, [id number], [facility]/pharmacy #[id number] Start Date: 06/29/17 Stop [...] Associate Professional Member Role: PCP Address: Address: [address] [place] [address]- Care Team Related Persons Name: CECELIA TAI Address: home [address] [place] [address]
--- OUTSIDE RECORDS SUMMARY | 2023-12-12 19:59 | XMS_ITS | Continuity of Care Document ---
Author Organization [facility] Dusty Bustamante Todd lt Address [address] [place] [address]- Care Team Providers Care Software Engineer Intern Name Role Phone Asa WILCOX, Rimma Valles Primary Care Physician [phone] Encounter [facility] Date(s): 01/02/22 - 01/09/22 [facility] Adult [address] [place] [address]- Encounter Diagnosis Headache(Discharge Diagnosis) - 01/02/22 Attending Physician: Low WILCOX, Talia Allergies, Adverse Reactions, Alerts Substance Reaction Severity [...] diphtheria-tetanus toxoids (DT) 08/03/98 Given 1Result Comment: [id number] 2Result Comment: [06/30/2016] [facility] 3Admin Note: [...] 2, Maintenance,06/29/17 10:52:55, Route to Pharmacy Electronically, [id number], [facility]/pharmacy #[id number] Start Date: 06/29/17 [...] Replace Required Details, Route to Pharmacy Electronically, [id number] Start Date: 10/23/17 Status: Ordered LaMICtal 200 [...] Diagnosis Diagnosis Type Effective Dates Health Status Clini gaurav Service Informant Headache Discharge Diagnosis 01/02/22 Vital Signs Most recent to oldest [Reference Range]: 1 Height 160.02 cm (01/02/22 11:16 AM) Social History Social History Type Response Smoking Status Current every day leon grover entered on: 07/03/17 Sex
--- OUTSIDE RECORDS SUMMARY | 2023-12-12 19:59 | XMS_ITS | Continuity of Care Document ---
Author Organization [facility] Robby Todd lt Address [address] [place] [address]- Care Team Providers Care Net Mvc Developer Name Role Phone Zander Yoon MD Primary Care Physician [phone] Encounter [facility] Date(s): 05/30/21 - 06/29/21 [facility] Adult [address] [place] [address]- Allergies, Adverse Reactions, Alerts Substance Reaction Severity [...] diphtheria-tetanus toxoids (DT) 08/03/98 Given 1Result Comment: [id number] 2Result Comment: [06/30/2016] [facility] 3Admin Note: [...] 2, Maintenance,06/29/17 10:52:55, Route to Pharmacy Electronically, [id number], [facility]/pharmacy #[id number] Start Date: 06/29/17 [...] Replace Required Details, Route to Pharmacy Electronically, [id number] Start Date: 10/23/17 Status: Ordered LaMICtal 200 [...]
--- OUTSIDE RECORDS SUMMARY | 2023-12-12 19:59 | XMS_ITS | Continuity of Care Document ---
Author Organization [facility] Robby Todd lt Address [address] [place] [address]- Care Team Providers Care Metalizing Machine Operator Name Role Phone Asa WILCOX, Rimma Valles Primary Care Physician [phone] Encounter [facility] [place] Date(s): 01/30/22 - 05/02/22 [facility] Adult [address] [place] [address]- Attending Physician: Asa WILCOX, Rimma Valles Referring [...] diphtheria-tetanus toxoids (DT) 08/03/98 Given 1Result Comment: [id number] 2Result Comment: [06/30/2016] [facility] 3Admin Note: [...] 2, Maintenance,06/29/17 10:52:55, Route to Pharmacy Electronically, [id number], [facility]/pharmacy #[id number] Start Date: 06/29/17 [...] Replace Required Details, Route to Pharmacy Electronically, [id number] Start Date: 10/23/17 Status: Ordered LaMICtal 200 [...] Sex Patient Care team information Personnel Name: Rimma Bray NP Address: Address: [address] [place] [address]-
--- OUTSIDE RECORDS SUMMARY | 2023-12-12 19:59 | XMS_ITS | Continuity of Care Document ---
Author Organization [facility] Dusty Bustamante Todd lt Address [address] [place] [address]- Care Team Providers Care Boat Engine Mechanic Name Role Phone Zander Yoon MD Primary Care Physician Encounter [facility] [place] Date(s): 08/08/19 - 08/15/19 [facility] Dusty Bustamante Adult [address] [place] [address]- [facility] Encounter Diagnosis Coxsackievirus infection(Discharge Diagnosis) - 08/08/19 Attending Physician: Zander Yoon MD Allergies, Adverse [...] diphtheria-tetanus toxoids (DT) 08/03/98 Given 1Result Comment: [id number] 2Result Comment: [06/30/2016] [facility] 3Admin Note: [...] 2, Maintenance,06/29/17 10:52:55, Route to Pharmacy Electronically, [id number], [facility]/pharmacy #[id number] Start Date: 06/29/17 Stop Date: 09/27/17 Status: Ordered Diflucan 150 mg oral tablet 1 tablet = 150 mg, By Mouth, Every week, for 4 week(s), # 4 tablet, 0 Refills, Acute 09/05/19 10:25:00 EST, 08/08/19 10:25:00 EST, Tablet, [facility]/pharmacy #[id number], 160.02, cm, 08/08/19 10:04:00 EST, Height [...] Replace Required Details, Route to Pharmacy Electronically, [id number] Start Date: 10/23/17 Status: Ordered LaMICtal 200 [...] Diagnosis Diagnosis Type Effective Dates Health Status Clinical Service Informant Coxsackievirus infection Discharge Diagnosis 08/08/19 Vital Signs Most recent to oldest [Reference Range]: 1 Height 160.02 cm (08/08/19 10:04 AM) Weight 63.2 kg (08/08/19 10:04 AM) Oxygen Saturation [94-100 %] 99 % (08/08/19 10:04 AM) Pulse Rate [55-90 bpm] 92 bpm *H* (08/08/19 10:04 AM) Body Mass Index [18.5-24.99] 24.68 (08/08/19 10:04 AM) Blood Pressure [90-138/55-84 mm Hg] 102/ 62mm Hg (08/08/19 10:04 AM) Temperature [96.8-100.4 DegF] 98.1 DegF (08/08/19 10:04 AM) Mode of Delivery (Oxygen) Room air (08/08/19 10:04 AM) Blood pressure sites Arm, left (08/08/19 10:04 AM) Temperature Route Oral (08/08/19 10:04 AM) Weight Obtained Via Standing scale (08/08/19 10:04 AM) Social History Social History Type Response Smoking Status Current every day leon grover entered on: 07/03/17 Sex
--- OUTSIDE RECORDS SUMMARY | 2023-12-12 19:59 | XMS_ITS | Continuity of Care Document ---
Author Organization [facility] Dusty Bustamante Todd lt Address [address] [place] [address]- Care Team Providers Care Building Energy Retrofit Technician Name Role Phone Asa WILCOX, Rimma Valles Primary Care Physician [phone] Encounter [facility] Date(s): 05/14/23 - 06/13/23 [facility] Dusty Bustamante Adult [address] [place] [address]- Allergies, Adverse Reactions, Alerts Substance Reaction Severity [...] diphtheria-tetanus toxoids (DT) 08/03/98 Given 1Result Comment: [id number] 2Result Comment: [06/30/2016] [facility]Admin Note: [...] 2, Maintenance,06/29/17 10:52:55, Route to Pharmacy Electronically, [id number], [facility]/pharmacy #[id number] Start Date: 06/29/17 [...] Associate Professional Member Role: PCP Address: Address: [address] [place] [address]- Care Team Related Persons Name: CECELIA TAI Address: home [address] [place] [address]
--- OUTSIDE RECORDS SUMMARY | 2023-12-12 19:59 | XMS_ITS | Continuity of Care Document ---
Author Organization [facility] Dusty Bustamante Todd lt Address [address] [place] [address]- Care Team Providers Care Therapeutic Recreation Leader Name Role Phone Asa WILCOX, Rimma Valles Primary Care Physician Encounter [facility] Date(s): 09/18/21 - 09/25/21 [facility] Dusty Bustamante Adult [address] [place] [address]- Encounter Diagnosis Lump of skin of back(Discharge Diagnosis) - 09/18/21 Atopic dermatitis(Discharge Diagnosis) - 09/18/21 Attending Physician: Chitra Richardson Referring Physician: Asa WILCOX, Rimma Valles Allergies, Adverse [...] diphtheria-tetanus toxoids (DT) 08/03/98 Given 1Result Comment: [id number] 2Result Comment: [06/30/2016] [facility]Admin Note: [...] 2, Maintenance,06/29/17 10:52:55, Route to Pharmacy Electronically, [id number], [facility]/pharmacy #[id number] Start Date: 06/29/17 Stop [...] Replace Required Details, Route to Pharmacy Electronically, [id number] Start Date: 10/23/17 Status: Ordered LaMICtal 200 [...] Effective Dates Health Status Clinical Service Informant Lump of skin of back Discharge Diagnosis 09/18/21 Atopic dermatitis Discharge Diagnosis 09/18/21 Vital Signs Most recent to oldest [Reference Range]: 1 Height 160.02 cm (09/18/21 1:20 PM) Weight 64.0 kg (09/18/21 1:20 PM) Oxygen Saturation [94-100 %] 99 % (09/18/21 1:20 PM) Pulse Rate [55-90 bpm] 111 bpm *H* (09/18/21 1:20 PM) Body Mass Index [18.5-24.99] 24.99 (09/18/21 1:20 PM) Blood Pressure [90-138/55-84 mm Hg] 124/ 58mm Hg (09/18/21 1:20 PM) Respiratory Rate [16-30 br/min] 16 br/mi n (09/18/21 1:20 PM) Temperature [96.8-100.4 DegF] 98.4 DegF (09/18/21 1:20 PM) Mode of Delivery (Oxygen) Room air (09/18/21 1:20 PM) Blood pressure sites Arm, right (09/18/21 1:20 PM) Temperature Route Oral (09/18/21 1:20 PM) Weight Obtained Via Standing scale (09/18/21 1:20 PM) Social History Social History Type Response Smoking Status Current every day leon grover entered on: 07/03/17 Sex
--- OUTSIDE RECORDS SUMMARY | 2023-12-12 19:59 | XMS_ITS | Continuity of Care Document ---
Author Organization [facility] Dusty Bustamante Todd lt Address [address] [place] [address]- Care Team Providers Care Event Crew Technician Name Role Phone Zander Yoon MD Primary Care Physician [phone] [place] [facility] [place] 04/11[place]20 - 04/18/20 [facility] Adult [address] [place] [address]- [facility] Encounter Diagnosis Prepatellar bursitis(Discharge Diagnosis) - 04/11/20 Attending Physician: Zander Yoon MD Allergies, Adverse [...] diphtheria-tetanus toxoids (DT) 08/03/98 Given 1Result Comment: [id number] 2Result Comment: [06/30/2016] [facility] 3Admin Note: [...] 2, Maintenance,06/29/17 10:52:55, Route to Pharmacy Electronically, [id number], [facility]/pharmacy #[id number] Start Date: 06/29/17 Stop Date: 09/27/17 [...] Replace Required Details, Route to Pharmacy Electronically, [id number] Start Date: 10/23/17 Status: Ordered LaMICtal 200 [...] Effective Dates Health Status Clinical Service Informant Prepatellar bursitis Discharge Diagnosis 04/11/20 Vital Signs Most recent to oldest [Reference Range]: 1 Height 160.02 cm (04/11/20 12:15 PM) Weight 64.1 kg (04/11/20 12:15 PM) Oxygen Saturation [94-100 %] 98 % (04/11/20 12:15 PM) Pulse Rate [55-90 bpm] 94 bpm *H* (04/11/20 12:15 PM) Body Mass Index [18.5-24.99] 25.03 *H* (04/11/20 12:15 PM) Blood Pressure [90-138/55-84 mm Hg] 106/ 64mm Hg (04/11/20 12:15 PM) Temperature [96.8-100.4 DegF] 98.3 DegF (04/11/20 12:15 PM) Temperature Route Oral (04/11/20 12:15 PM) Weight Obtained Via Standing scale (04/11/20 12:15 PM) Social History Social History Type Response Smoking Status Current every day leon grover entered on: 07/03/17 Sex
--- OUTSIDE RECORDS SUMMARY | 2023-12-12 20:00 | XMS_ITS | Continuity of Care Document ---
Author Organization [facility] Dusty Bustamante Todd lt Address [address] [place] [address]- Care Team Providers Care Pilates Coordinator Name Role Phone Zander Yoon MD Primary Care Physician [phone] Encounter [facility] Date(s): 04/11/20 - 05/11/20 [facility] Dusty Goodenley Adult [address] [place] [address]- [facility] Attending Physician: Admtr, Ar8 Allergies, [...] diphtheria-tetanus toxoids (DT) 08/03/98 Given 1Result Comment: [id number] 2Result Comment: [06/30/2016] [facility] 3Admin Note: [...] 2, Maintenance,06/29/17 10:52:55, Route to Pharmacy Electronically, [id number], [facility]/pharmacy #[id number] Start Date: 06/29/17 Stop [...] Replace Required Details, Route to Pharmacy Electronically, [id number] Start Date: 10/23/17 Status: Ordered LaMICtal 200 [...]
--- OUTSIDE RECORDS SUMMARY | 2023-12-12 20:00 | XMS_ITS | Continuity of Care Document ---
Author Organization [facility] Dusty Bustamante Todd lt Address [address] [place] [address]- Care Team Providers Care Gravel Weigher Name Role Phone Asa WILCOX, Rimma Valles Primary Care Physician Encounter [facility] Date(s): 11/12/21 - 12/12/21 [facility] Dusty Bustamante Adult [address] [place] [address]- Allergies, Adverse Reactions, Alerts Substance Reaction Severity [...] diphtheria-tetanus toxoids (DT) 08/03/98 Given 1Result Comment: [id number] 2Result Comment: [06/30/2016] [facility] 3Admin Note: [...] 2, Maintenance,06/29/17 10:52:55, Route to Pharmacy Electronically, [id number], [facility]/pharmacy #[id number] Start Date: 06/29/17 Stop [...] Replace Required Details, Route to Pharmacy Electronically, [id number] Start Date: 10/23/17 Status: Ordered LaMICtal 200 [...]
--- OUTSIDE RECORDS SUMMARY | 2023-12-12 20:00 | XMS_ITS | Continuity of Care Document ---
Author Organization [facility] Dusty Bustamante Todd lt Address [address] [place] [address]- Care Team Providers Care Combustion Engineer Name Role Phone Asa WILCOX, Rimma Valles Primary Care Physician Encounter [facility] Date(s): 04/24/23 - 05/24/23 [facility] Dusty Bustamante Adult [address] [place] [address]- Allergies, Adverse Reactions, Alerts Substance Reaction Severity [...] diphtheria-tetanus toxoids (DT) 08/03/98 Given 1Result Comment: [id number] 2Result Comment: [06/30/2016] [facility] 3Admin Note: [...] 2, Maintenance,06/29/17 10:52:55, Route to Pharmacy Electronically, [id number], [facility]/pharmacy #[id number] Start Date: 06/29/17 Stop [...] 05/25/23 8:27:00 EDT, 05/18/23 8:27:00 EDT, Tablet, [facility]/pharmacy #[id number], Partial fill upon patient request if theprescription [...] Associate Professional Member Role: PCP Address: Address: [address] [place] [address]- Care Team Related Persons Name: CECELIA TAI Address: home [address] [place] [address]
--- OUTSIDE RECORDS SUMMARY | 2023-12-12 20:00 | XMS_ITS | Continuity of Care Document ---
Author Organization [facility] Robby Todd lt Address [address] [place] [address]- Care Team Providers Care Television Presenter Name Role Phone Zander Yoon MD Primary Care Physician Encounter [facility] Date(s): 01/17/21 - 02/16/21 [facility] Adult [address] [place] [address]- Attending Physician: Admtr, Ar8 Allergies, Adverse Reactions, [...] diphtheria-tetanus toxoids (DT) 08/03/98 Given 1Result Comment: [id number] 2Result Comment: [06/30/2016] [facility] 3Admin Note: [...] 2, Maintenance,06/29/17 10:52:55, Route to Pharmacy Electronically, [id number], [facility]/pharmacy #[id number] Start Date: 06/29/17 Stop Date: [...] Replace Required Details, Route to Pharmacy Electronically, [id number] Start Date: 10/23/17 Status: Ordered LaMICtal 200 [...]
--- OUTSIDE RECORDS SUMMARY | 2023-12-12 20:00 | XMS_ITS | Continuity of Care Document ---
Author Organization [facility] Dusty Bustamante Todd lt Address [address] [place] [address]- Care Team Providers Care Electronic Development Technician Name Role Phone Asa WILCOX, Rimma Valles Primary Care Physician [phone] [place] [facility] [place] Date(s): 10/14/21 - 11/17/21 [facility] Dusty Bustamante Adult [address] [place] [address]- Attending Physician: Asa WILCOX, Rimma Valles Allergies, [...] diphtheria-tetanus toxoids (DT) 08/03/98 Given 1Result Comment: [id number] 2Result Comment: [06/30/2016] [facility] 3Admin Note: [...] 2, Maintenance,06/29/17 10:52:55, Route to Pharmacy Electronically, [id number], [facility]/pharmacy #[id number] Start Date: 06/29/17 Stop Date: [...] Replace Required Details, Route to Pharmacy Electronically, [id number] Start Date: 10/23/17 Status: Ordered LaMICtal 200 [...] 0, Tot. Refills 0, Maintenance, DX: Carpal caleb syndome, 06/06/19 12:11:41 EST, Compound Start Date: [...]
[2023-12-12 20:24] LABS: MANUAL DIFF FLAG NO
[2023-12-12 20:29] LABS: Basophils Absolute Auto 0.1 X10*3/uL (0.0-0.2); Eosinophils Absolute Auto 0.3 X10*3/uL (0.0-0.4); Eosinophils Percent Auto 3.8 % (0-4); Hematocrit 38.6 % (37.0-47.0); Hemoglobin 12.9 g/dl (12.0-16.0); Imm Gran Abs Auto 0.02 X10*3/uL (0.00-0.03); Imm Gran Pct Auto 0.2 % (0.0-0.4); Lymphocytes Absolute Auto 2.9 X10*3/uL (1.2-4.9); Mean Corpuscular HGB Conc 33.4 g/dl (31.0-35.0); Mean Corpuscular Hemoglobin 30.6 pg (27.0-33.0); Mean Corpuscular Volume 91.5 fL (80.0-98.0); Mean Platelet Volume 10.1 fL (9.4-12.3); Monocytes Absolute Auto 0.5 X10*3/uL (0.1-1.2); Monocytes Percent Auto 6.3 % (2-11); Neutrophils Absolute Auto 4.6 x10*3/uL (2.0-8.3); Neutrophils Percent Auto 54.7 % (45-73); Platelet Count 393 X10*3/uL (160-400); Red Blood Count 4.22 X10*6/uL (4.20-5.50); Red Cell Distribution Width 12.2 % (11.0-16.0); White Blood Count 8.4 X10*3/uL (4.8-10.8)
[2023-12-12 20:31] LABS: Appearance Urine Clear; Color Urine Yellow; Glucose Urine UA Negative (Negative); Leukocyte Esterase Urine Small (1+) (Negative); Nitrite Urine Negative (Negative); UMIC TRIGGER UA YES; Urine Blood Negative (Negative); Urine Ketones Negative (Negative); Urine Protein Negative (Neg-Trace)
[2023-12-12 20:32] LABS: UPreg QC Valid YES; Urine Pregnancy NEGATIVE (NEGATIVE)
[2023-12-12 20:38] LABS: Bacteria Urine None Seen (None Seen); Hyaline Casts Urine 0-2 /LPF (0-2); RBC Urine 0-2 /HPF (0-2); WBC Urine 0-5 /HPF (0-5)
[2023-12-12 20:51] LABS: Amphetamine Screen Urine Not Detected (Not Detect); Barbiturates, Urine Not Detected (Not Detect); Benzodiazepines Screen Urine Not Detected (Not Detect); Buprenorphine Scr Not Detected (Not Detect); Cannabinoid Screen Urine Not Detected (Not Detect); Cocaine Screen Urine Not Detected (Not Detect); Fentanyl, urine Not Detected (Not Detect); Methadone Screen, Urine Not Detected (Not Detect); Opiate Screen Urine Not Detected (Not Detect); Oxycodone Screen Urine Not Detected (Not Detect); Phencyclidine Screen Urine Not Detected (Not Detect)
[2023-12-12 20:56] LABS: Alanine Aminotransferase 31 U/L (0-31); Albumin Level 3.9 g/dL (3.5-5.0); Alkaline Phosphatase 71 U/L (39-117); Anion Gap 14 (12-20); Aspartate Amino Transferase 16 U/L (5-31); Bilirubin Total 0.2 mg/dL (0.0-1.0); Blood Urea Nitrogen 15 mg/dL (9-16); Calcium 9.4 mg/dL (8.4-10.2); Carbon Dioxide 26 mmol/L (22-29); Chloride 103 mmol/L (96-108); Creatinine Clr Calc Pharmacy 87.7; Estimated Glomerular Filt Rate > 60; Ethanol < 10 mg/dL; Glucose Random 80 mg/dL (60-115); Potassium 3.8 mmol/L (3.3-5.1); Sodium 139 mmol/L (135-145); Total Protein 6.6 g/dL (6.5-8.0)
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
[2023-12-12] MEDS: lamoTRIgine 100 MG TABLET PO (22:10)
[2023-12-12 22:11] VITALS: BP 125/98
[2023-12-12] MEDS: Nortriptyline HCl 25 MG CAPSULE 75 MG PO (22:11)
[2023-12-12] MEDS: cloNIDine HCL 0.2 MG TABLET PO (22:11)
[2023-12-12] MEDS: clonazePAM 0.5 MG TABLET PO (22:11)
[2023-12-13] VITALS: BP 127/89; PULSE 84; RESP 16; TEMP 37.1; O2SAT 98
--- NOTE | 2023-12-13 06:29 | PC.NURSE ---
Patient slept through the night, meds and meals compliant, denied SI/HI/AVH, no distress observed/reported, VSS, care consult ordered, pending evaluation, behavior in good control, will continue to monitor.
--- NOTE | 2023-12-13 07:08 | PC.NURSE ---
Assumed care of patient at 0645. Patient is observed sleeping in her bed. No signs of distress, breathing is even and unlabored. Will continue plan of care.
[2023-12-13] MEDS: clonazePAM 0.5 MG TABLET PO ×2 (08:59→22:12)
[2023-12-13] MEDS: lamoTRIgine 100 MG TABLET PO ×3 (08:59→21:08)
[2023-12-13] MEDS: Nicotine 14 MG PATCH.TD24 TRANSDERMA (09:02)
[2023-12-13 09:05] VITALS: BP 162/72; PULSE 100; RESP 18; TEMP 36.6; O2SAT 97
[2023-12-13 16:14] VITALS: BP 140/81; PULSE 104; RESP 18; TEMP 2.7; TEMP 36.9; O2SAT 100; BMI 28.8
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
[2023-12-13 21:08] VITALS: BP 162/72
[2023-12-13] MEDS: Nortriptyline HCl 25 MG CAPSULE 75 MG PO (21:08)
[2023-12-13] MEDS: cloNIDine HCL 0.2 MG TABLET PO (21:08)
[2023-12-14] MEDS: Acetaminophen 325 MG TABLET 650 MG PO ×2 (03:49→08:54)
[2023-12-14 08:00] VITALS: BP 99/53; PULSE 86; RESP 18; TEMP 36; O2SAT 100
[2023-12-14] MEDS: Aspirin Enteric Coated 325 MG TABLET.DR PO (08:54)
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
[2023-12-14] MEDS: lamoTRIgine 100 MG TABLET PO ×3 (09:31→21:30)
[2023-12-14] MEDS: Nicotine 21 MG PATCH.TD24 TRANSDERMA (10:40)
[2023-12-14] MEDS: clonazePAM 0.5 MG TABLET PO ×2 (15:09→21:36)
[2023-12-14 19:59] VITALS: BP 125/66; PULSE 97; RESP 16; TEMP 36.8; O2SAT 98
[2023-12-14] MEDS: Cariprazine HCl 1.5 MG CAPSULE PO (21:23)
[2023-12-14] MEDS: Nortriptyline HCl 25 MG CAPSULE 75 MG PO (21:30)
[2023-12-14] MEDS: cloNIDine HCL 0.2 MG TABLET PO (21:30)
[2023-12-15] MEDS: clonazePAM 0.5 MG TABLET PO ×3 (00:19→22:05)
[2023-12-15 08:00] VITALS: BP 106/50; PULSE 94; RESP 16; TEMP 36.4; O2SAT 100
[2023-12-15] MEDS: Nicotine 21 MG PATCH.TD24 TRANSDERMA (09:11)
[2023-12-15] MEDS: Cariprazine HCl 1.5 MG CAPSULE PO (09:12)
[2023-12-15] MEDS: lamoTRIgine 100 MG TABLET PO ×3 (09:12→20:20)
[2023-12-15] MEDS: Nicotine Polacrilex 2 MG GUM 4 MG BUCCAL ×2 (09:12→15:47)
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
[2023-12-15] MEDS: Milk of Magnesia 30 ML ORAL.SUSP PO (16:09)
[2023-12-15 20:00] VITALS: BP 132/83; PULSE 112; RESP 16; TEMP 36.8; O2SAT 98
[2023-12-15] MEDS: cloNIDine HCL 0.2 MG TABLET PO (20:20)
[2023-12-15] MEDS: Nortriptyline HCl 25 MG CAPSULE 75 MG PO (20:20)
[2023-12-16 08:00] VITALS: BP 100/68; PULSE 92; RESP 18; TEMP 36.1; O2SAT 100
[2023-12-16] MEDS: Cariprazine HCl 1.5 MG CAPSULE PO (08:18)
[2023-12-16] MEDS: lamoTRIgine 25 MG TABLET 150 MG PO ×2 (08:18→21:20)
[2023-12-16] MEDS: Nicotine 21 MG PATCH.TD24 TRANSDERMA (08:53)
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
[2023-12-16] MEDS: Dextroamphetamine/Amphetamine XR 5 MG CAP.ER.24H PO (11:10)
[2023-12-16] MEDS: Nicotine Polacrilex 2 MG GUM 4 MG BUCCAL (15:25)
[2023-12-16 20:00] VITALS: BP 128/60; PULSE 104; RESP 18; TEMP 35.7; O2SAT 98
[2023-12-16] MEDS: Nortriptyline HCl 25 MG CAPSULE 75 MG PO (21:21)
[2023-12-16] MEDS: cloNIDine HCL 0.2 MG TABLET PO (21:21)
[2023-12-16] MEDS: clonazePAM 0.5 MG TABLET PO (23:36)
[2023-12-17 07:00] VITALS: BMI 28.5
[2023-12-17] MEDS: Nicotine 21 MG PATCH.TD24 TRANSDERMA (07:03)
[2023-12-17] MEDS: Nicotine Polacrilex 2 MG GUM 4 MG BUCCAL ×2 (07:04→23:06)
[2023-12-17] MEDS: Acetaminophen 325 MG TABLET 650 MG PO (07:04)
[2023-12-17 08:00] VITALS: BP 99/67; PULSE 102; RESP 17; TEMP 36.6; O2SAT 98
[2023-12-17] MEDS: Dextroamphetamine/Amphetamine XR 5 MG CAP.ER.24H PO (08:39)
[2023-12-17] MEDS: Cariprazine HCl 1.5 MG CAPSULE PO (08:40)
[2023-12-17] MEDS: lamoTRIgine 25 MG TABLET 150 MG PO ×2 (08:40→20:42)
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
[2023-12-17 18:22] VITALS: BP 131/77
[2023-12-17] MEDS: cloNIDine HCL 0.1 MG TABLET PO (18:22)
[2023-12-17 18:24] VITALS: BP 131/77; PULSE 114
[2023-12-17 20:00] VITALS: BP 113/86; PULSE 113; TEMP 36.8; O2SAT 98
[2023-12-17 20:41] VITALS: BP 113/86
[2023-12-17] MEDS: cloNIDine HCL 0.2 MG TABLET PO (20:41)
[2023-12-17] MEDS: Nortriptyline HCl 25 MG CAPSULE 75 MG PO (20:41)
[2023-12-17] MEDS: clonazePAM 0.5 MG TABLET PO ×2 (20:41→22:59)
[2023-12-18 08:00] VITALS: BP 117/66; PULSE 89; RESP 16; TEMP 36.5; O2SAT 100
[2023-12-18] MEDS: lamoTRIgine 25 MG TABLET 150 MG PO ×2 (09:30→20:54)
[2023-12-18] MEDS: Cariprazine HCl 1.5 MG CAPSULE PO (09:30)
[2023-12-18] MEDS: Dextroamphetamine/Amphetamine XR 5 MG CAP.ER.24H PO (09:30)
[2023-12-18] MEDS: Nicotine Polacrilex 2 MG GUM 4 MG BUCCAL ×2 (09:37→14:33)
[2023-12-18] MEDS: Nicotine 21 MG PATCH.TD24 TRANSDERMA (09:37)
[2023-12-18 13:19] VITALS: BP 126/83
[2023-12-18] MEDS: cloNIDine HCL 0.1 MG TABLET PO (13:19)
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
[2023-12-18 20:00] VITALS: BP 128/74; PULSE 97; RESP 18; TEMP 37.3; O2SAT 100
[2023-12-18] MEDS: Nortriptyline HCl 25 MG CAPSULE 75 MG PO (20:54)
[2023-12-18] MEDS: clonazePAM 0.5 MG TABLET PO ×2 (20:55→22:49)
[2023-12-18 21:12] VITALS: BP 128/74
[2023-12-18] MEDS: cloNIDine HCL 0.2 MG TABLET PO (21:12)
[2023-12-19 08:00] VITALS: BP 118/65; PULSE 96; RESP 16; TEMP 36.6; O2SAT 96
[2023-12-19] MEDS: lamoTRIgine 25 MG TABLET 150 MG PO ×2 (08:47→22:06)
[2023-12-19] MEDS: Cariprazine HCl 1.5 MG CAPSULE PO (08:47)
[2023-12-19] MEDS: Dextroamphetamine/Amphetamine XR 5 MG CAP.ER.24H PO (08:47)
[2023-12-19] MEDS: Nicotine 21 MG PATCH.TD24 TRANSDERMA (08:53)
[2023-12-19] MEDS: Nicotine Polacrilex 2 MG GUM 4 MG BUCCAL ×3 (10:44→22:09)
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
[2023-12-19 19:42] VITALS: BP 127/63; PULSE 103; RESP 18; TEMP 36.6; O2SAT 100
[2023-12-19 22:05] VITALS: BP 127/63
[2023-12-19] MEDS: cloNIDine HCL 0.2 MG TABLET PO (22:05)
[2023-12-19] MEDS: clonazePAM 0.5 MG TABLET PO ×2 (22:06→23:31)
[2023-12-19] MEDS: Nortriptyline HCl 25 MG CAPSULE 75 MG PO (22:06)
[2023-12-19] MEDS: Acetaminophen 325 MG TABLET 650 MG PO (23:31)
[2023-12-20] MEDS: Nicotine Polacrilex 2 MG GUM 4 MG BUCCAL (07:19)
[2023-12-20] MEDS: cloNIDine HCL 0.1 MG TABLET PO (07:19)
[2023-12-20 07:48] VITALS: BP 110/70; PULSE 93; RESP 16; TEMP 36.4; O2SAT 100
[2023-12-20] MEDS: Nicotine 21 MG PATCH.TD24 TRANSDERMA (08:02)
[2023-12-20] MEDS: Dextroamphetamine/Amphetamine XR 5 MG CAP.ER.24H PO (08:03)
[2023-12-20] MEDS: Cariprazine HCl 1.5 MG CAPSULE PO (08:03)
[2023-12-20] MEDS: lamoTRIgine 25 MG TABLET 150 MG PO (08:03)
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
== END 2023-12-20 11:40 | disposition home or self-care (01) | DRG 885 ==
LOC: HO.ED 12-13 07:37 → HO.PM5 12-13 13:25
PROVIDERS: Admitting Provider Psychiatry & Neurology Psychiatry; Emergency Provider Internal Medicine; PCP Nurse Practitioner Family; Visit Provider Psychiatry & Neurology Psychiatry
DX: F31.63 Bipolar disorder, current episode mixed, severe, without psychotic features (principal); R45.851 Suicidal ideations; F14.20 Cocaine dependence, uncomplicated; F90.9 Attention-deficit hyperactivity disorder, unspecified type; F17.210 Nicotine dependence, cigarettes, uncomplicated; Z71.6 Tobacco abuse counseling; F43.10 Post-traumatic stress disorder, unspecified; Z79.899 Other long term (current) drug therapy
CPT/HCPCS: 36415; 80053; 80307; 81001; 81025; 85025; 99285; S9485

== ENCOUNTER → 2023-12-13 13:20 | Outpatient (BNV) | payer MEDICARE, MEDICAID, SELFPAY | PROVIDERS: Admitting Provider Psychiatry & Neurology Psychiatry; Emergency Provider Internal Medicine; PCP Nurse Practitioner Family; Visit Provider Psychiatry & Neurology Psychiatry | DX: F31.81 Bipolar II disorder (principal); F43.11 Post-traumatic stress disorder, acute; F90.9 Attention-deficit hyperactivity disorder, unspecified type | CPT/HCPCS: 90792; 99231; 99232; 99239 ==

== ENCOUNTER 2024-04-27 14:43 | Inpatient (IN) | payer MEDICARE, MEDICAID, SELFPAY ==
[2024-04-27 15:08] VITALS: BP 133/104; PULSE 112; RESP 19; TEMP 36.6; O2SAT 98; BMI 30.6
--- NOTE | 2024-04-27 15:08 | ED.PSYCH ---
HPI - Psych General Chief Complaint: Psychiatric Symptoms Stated Complaint: crisis Time Seen by Provider: 04/27/24 15:31 Source: patient Mode of arrival: ambulatory Limitations: no limitations History of Present Illness ED Provider: Ruby Chavis PA-C HPI Narrative: Patient is a 39 year old assigned female at with a history of ADHD, bipolar disorder, and PTSD presenting to the emergency department today with depression, anxiety, and SI. Patient states that lately she has been more depressed, anxious, and suicidal. Patient denies any dizziness, lightheadedness, abdominal pain, nausea, vomiting, fever, chills, blurry vision, double vision, loss of vision, chest pain, difficulty breathing, shortness of breath, back pain, night sweats, pain with urination, increased urinary frequency, increased urinary urgency, blood in her urine or stool, syncope or a near syncopal episode, recent trauma or falls, bowel incontinence, bladder incontinence, or any other complaints at this time. MD complaint: suicidal ideation and feels depressed Associated symptoms: denies other symptoms Related Data Home Medications ?Medication ?Instructions ?Recorded ?Confirmed amoxicillin 875 mg-potassium 1 tab PO Q12H 04/27/24 04/27/24 clavulanate 125 mg tablet dextroamphetamine-amphetamine ER 5 5 mg PO BID 04/27/24 04/27/24 mg 24hr capsule,extend release Previous Rx's ?Medication ?Instructions ?Recorded cariprazine 1.5 mg capsule 1.5 mg PO DAILY 30 days #30 caps 12/20/23 (Vraylar) clonazepam 0.5 mg tablet 0.5 mg PO TID PRN anxiety 30 days 12/20/23 #60 tabs clonidine HCl 0.1 mg tablet 0.1 mg PO Q4H PRN mild-mod anxiety 12/20/23 30 days #90 tabs clonidine HCl 0.2 mg tablet 0.2 mg PO BEDTIME 30 days #30 tabs 12/20/23 lamotrigine 150 mg tablet 150 mg PO BID 30 days #60 tabs 12/20/23 nortriptyline 75 mg capsule 75 mg PO BEDTIME 30 days #30 caps 12/20/23 Allergies Allergy/AdvReac Type Severity Reaction Status Date / Time sulfamethoxazole Allergy Unknown Verified 04/27/24 15:10 [From Bactrim] trimethoprim [From Bactrim] Allergy Unknown Verified 04/27/24 15:10 Review of Systems Constitutional: Constitutional: Reports no additional constitutional complaints, Denies chills, Denies fever(s) and Denies night sweats Eyes: Eyes: Reports no additional eye complaints, Denies blurry vision, Denies change in vision, Denies diplopia, Denies eye discharge, Denies loss of vision and Denies eye pain ENT: Denies dizziness Cardiovascular: Cardiovascular: Reports no additional cardiovascular complaints, Denies chest pain, Denies lightheadedness, Denies Loss of Consciousness and Denies dyspnea Respiratory: Respiratory: Reports no additional respiratory complaints and Denies dyspnea Gastrointestinal: Gastrointestinal: Reports no additional gastrointestinal complaints, Denies abdominal pain, Denies melena, Denies hematochezia, Denies change in bowel habits and Denies change in stool character Genitourinary: Genitourinary: Denies hematuria, Denies urinary frequency, Denies dysuria, Denies urinary incontinence, Denies urinary hesitancy and Denies urinary urgency Musculoskeletal: Musculoskeletal: Reports no additional musculoskeletal complaints, Denies numbness and Denies tingling Neurologic: Denies dizziness, Denies loss of vision, Denies numbness and Denies tingling Psychiatric: Psychiatric: Reports anxiety, Reports depression, Denies homicidal ideation and Reports suicidal ideation Endocrine: Endocrine: Reports no additional endocrine complaints Hematologic/Lymphatic: Hematologic/Lymphatic: Reports no additional hematologic/lymphatic complaints Allergic/Immunologic: Allergic/Immunologic: Reports no additional allergic/immunologic complaints [facility] Past Medical History Attestation statement: The following information was validated with the patient. Source: old records reviewed and nursing notes reviewed Medical History Bipolar I disorder with mixed features ADHD PTSD (post-traumatic stress disorder) Social History Social History Household Members: Family Housing: Apartment Do you presently have visiting nurse or other home services: No Patient Tobacco Use Status: Current everyday Tobacco user Tobacco use type: Cigarette Cigarettes Per Day: 10 Smoked in Last 30 Days: No Second Hand Smoke Exposure: No Substance Use Type: Crack/Cocaine Advance Directives: No Advance Directives Information Provided: No Do you have a plan to hurt others: No Plan service: No Sexual orientation: Straight/Heterosexual Physical Exam Vital Signs: Vital Signs: Last Vital Signs Temp 98 F 04/27/24 15:08 Pulse 112 H 04/27/24 15:08 Resp 19 04/27/24 15:08 BP 133/104 H 04/27/24 15:08 Pulse Ox 98 04/27/24 15:08 O2 Del Method Room Air 04/27/24 15:08 BMI result Body Mass Index 30.6 Const: General: cooperative, no acute distress, alert and awake Nutritional Appearance: well nourished Orientation/consciousness: patient oriented x3 Limitations: no limitations HEENT: Head: Yes normal to inspection and Yes atraumatic Ears: hearing grossly normal bilaterally and external ears normal General nose exam: Normal external nose present, no nasal discharge noted and no epistaxis Face and sinus: Yes normal facial exam, No abrasion and No laceration Mouth: Normal oral and palatal mucosa present, no drooling and no muffled voice Eyes: General: appearance normal, both eyes and all related structures Periorbital: periorbital findings normal Eyelids: Yes eyelids normal Conjunctivae: conjunctivae normal Pupils: Equal, round and reactive pupils present EOM: EOMs intact bilaterally Neck: Neck: Yes normal visual inspection, Yes full ROM and Yes no lymphadenopathy Chest: Chest palpation & inspection: normal inspection of the chest Resp: Effort & Inspection: normal respiratory effort and able to speak in complete sentences GI: Inspection: Yes normal to inspection Neuro: General: patient oriented x3 and moves all extremities Cranial nerves: Yes Equal, round and reactive pupils present Cognition (Neuro): normal cognition Extrem: General: Yes normal to inspection, Yes full ROM and Yes capillary refill normal Psych: Appearance: grossly normal Mental Status: mental status grossly normal Affect: Sad affect present Attitude: Guarded attititude/behavior present Thought content: Suicidality present Course Course Course Narrative: This is a Rapid Medical Exam performed in triage by Gloria Xiong PA-C. Full HPI, ROS and PE to be performed by primary ED provider. 39 yo F w/PMHx PTSD, ADHD, bipolar, currently on antibiotics for strep throat, presenting to the ED c/o increased anxiety, depression, w/suicidal ideation. Admits to cocaine use on Thursday. denies other drugs. I need to go back upstairs PE: tearful, avoiding eye contact, suicidal Plan: Labs, tox screen, CARE consult Medications Administered Discontinued Medications Generic Name Dose Route Start Last Admin Trade Name Abram PRN Reason Stop Dose Admin Nicotine 14 mg 04/27/24 16:43 04/27/24 17:14 Nicotine 14 Mg Patch.Td24 TRANSDERMA 04/27/24 16:44 14 mg ONCE ONE Administration Medical Decision Making Medical Decision Making [facility] Narrative: Patient is a 39 year old assigned female at with a history of bipolar disorder, ADHD, and PTSD presenting to the emergency department today with depression, anxiety, and suicidal ideation. Patient's physical exam was as noted in the physical exam portion of this note. Patient's blood work was unremarkable. Patient's urine showed no acute process. I spoke to the CARE team who recommended inpatient level of psychiatric care. I explained my physical exam findings as well as all test results to the patient. I answered all questions asked by the patient. Patient verbalized agreement and understanding with this treatment plan and in patient psychiatric care. Differential Diagnosis Differential Diagnoses: The differential diagnosis associated with the presentation includes Suicidal ideation Depression Anxiety Admission/Observation Consideration of admission/observation: Escalation of care including admission/observation considered Patient will either be admitted here at [facility] for inpatient psychiatric care or transferred to an appropriate psychiatric facility. Consult Healthcare Provider Management of the patient was discussed with: Behavioral Health Provider (spoke to the CARE team as noted in the physical exam portion of this note. ) Lab Data [facility] Lab Attestation statement: I reviewed the patient's lab results. My interpretation of these results are in the MDM Rationale portion of this note. 04/27/24 17:05 04/27/24 17:05 Labs: Lab Results 04/27/24 04/27/24 Range/Units 15:34 17:05 WBC 8.8 (4.8-10.8) X10*3/uL RBC 4.72 (4.20-5.50) X10*6/uL Hgb 14.2 (12.0-16.0) g/dl Hct 42.4 (37.0-47.0) % MCV 89.8 (80.0-98.0) fL MCH 30.1 (27.0-33.0) pg MCHC 33.5 (31.0-35.0) g/dl RDW 11.9 (11.0-16.0) % Plt Count 445 H (160-400) X10*3/uL MPV 9.4 (9.4-12.3) fL Immature Gran % (Auto) 0.6 H (0.0-0.4) % Neut % (Auto) 64.0 (45-73) % Lymph % (Auto) 27.4 (20-40) % White % (Auto) 4.5 (2-11) % Eos % (Auto) 2.5 (0-4) % Baso % (Auto) 1.0 (0-2) % Lymph # (Auto) 2.4 (1.2-4.9) X10*3/uL White # (Auto) 0.4 (0.1-1.2) X10*3/uL Eos # (Auto) 0.2 (0.0-0.4) X10*3/uL Baso # (Auto) 0.1 (0.0-0.2) X10*3/uL Abs Immat Gran (auto) 0.05 H (0.00-0.03) X10*3/uL Absolute Neuts (auto) 5.6 (2.0-8.3) x10*3/uL Absolute Nucleated RBC 0.000 (0.0-0.012) X10*3/uL Nucleated RBC % (auto) 0.0 (0.0-0.2) /100WBC Sodium 141 (135-145) mmol/L Potassium 4.3 (3.3-5.1) mmol/L Chloride 104 (96-108) mmol/L Carbon Dioxide 28 (22-29) mmol/L Anion Gap 13 (12-20) BUN 7 L (9-16) mg/dL Creatinine 0.71 (0.5-1.4) mg/dL Estim Creat Clear Calc 107.4 Estimated GFR > 60 Random Glucose 90 (60-115) mg/dL Calcium 9.6 (8.4-10.2) mg/dL Magnesium 1.9 (1.6-2.6) mg/dL Total Bilirubin 0.2 (0.0-1.0) mg/dL Direct Bilirubin < 0.2 (0.0-0.5) mg/dL AST 25 (5-31) U/L ALT 29 (0-31) U/L Alkaline Phosphatase 85 (39-117) U/L Total Protein 7.8 (6.5-8.0) g/dL Albumin 4.2 (3.5-5.0) g/dL Urine Color Yellow Urine Appearance Clear Urine pH 7.0 (5.0-9.0) Ur Specific [place] 1.010 (1.005-1.025) Urine Protein Negative (Neg-Trace) mg/dL Urine Glucose (UA) Negative (Negative) mg/dL Urine Ketones Negative (Negative) mg/dL Urine Blood Negative (Negative) Urine Nitrite Negative (Negative) Ur Leukocyte Esterase Negative (Negative) Urine Test NEGATIVE (NEGATIVE) Salicylates < 5.0 L (15-30) mg/dL Urine Opiates Screen Not Detected (Not Detect) Ur Buprenorphine Scrn Not Detected (Not Detect) ng/mL Ur Oxycodone Screen Not Detected (Not Detect) ng/mL Urine Methadone Screen Not Detected (Not Detect) ng/mL Urine Fentanyl Screen Not Detected (Not Detect) Acetaminophen < 3 (<30) mcg/mL Ur Barbiturates Screen Not Detected (Not Detect) Ur Phencyclidine Scrn Not Detected (Not Detect) Ur Amphetamines Screen POSITIVE H (Not Detect) U Benzodiazepines Scrn Not Detected (Not Detect) Urine Cocaine Screen POSITIVE H (Not Detect) U Marijuana (THC) Screen Not Detected (Not Detect) Ethyl Alcohol < 10 mg/dL Critical Care Time Critical Care Time Critical Care Time: Yes Total Critical Care Time: 34 Attestation: I spent 34 minutes of Critical Care Time with this patient. This does not include time spent on separately reported billable procedures. Discharge Plan Discharge Clinical Impression: Suicidal ideation Patient Disposition: Still a Patient Prescriptions: No Action nicotine 21 mg/24 hr Patch 24 Hour 21 mg transdermal DAILY PRN (Reason: smoking cessation) 28 Days Qty: 28 0RF nicotine (polacrilex) 4 mg gum 4 mg buccal Q2H PRN (Reason: nicotine cravings) 30 Days Qty: 100 0RF clonidine HCl 0.1 mg Tablet 0.1 mg PO Q4H PRN (Reason: mild-mod anxiety) 30 Days Qty: 90 0RF Protocol: Hold for SBP< HOLD for SBP < : 90 Vraylar 1.5 mg Capsule 1.5 mg PO DAILY 30 Days Qty: 30 1RF lamotrigine 150 mg tablet 150 mg PO BID 30 Days Qty: 60 0RF clonazepam 0.5 mg tablet 0.5 mg PO TID PRN (Reason: anxiety) 30 Days Qty: 60 0RF clonidine HCl 0.2 mg tablet 0.2 mg PO BEDTIME 30 Days Qty: 30 0RF nortriptyline 75 mg capsule 75 mg PO BEDTIME 30 Days Qty: 30 0RF amoxicillin-pot clavulanate 875-125 mg tablet 1 tab PO Q12H dextroamphetamine-amphetamine 5 mg capsule,extended release 24hr 5 mg PO BID Patient Comments: second dose no later then 1pm Rx Instructions: Partial Fill upon patient request. Interventions: [place]-Suicide Risk Severity Scale Last Done: 04/27/24 15:31 Print Language: Lao
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
[2024-04-27 15:44] LABS: Appearance Urine Clear; Color Urine Yellow; Glucose Urine UA Negative (Negative); Leukocyte Esterase Urine Negative (Negative); Nitrite Urine Negative (Negative); Urine Blood Negative (Negative); Urine Ketones Negative (Negative); Urine Protein Negative (Neg-Trace)
[2024-04-27 15:45] LABS: UPreg QC Valid YES; Urine Pregnancy NEGATIVE (NEGATIVE)
[2024-04-27 15:55] LABS: Amphetamine Screen Urine POSITIVE (Not Detect); Barbiturates, Urine Not Detected (Not Detect); Benzodiazepines Screen Urine Not Detected (Not Detect); Buprenorphine Scr Not Detected (Not Detect); Cannabinoid Screen Urine Not Detected (Not Detect); Cocaine Screen Urine POSITIVE (Not Detect); Fentanyl, urine Not Detected (Not Detect); Methadone Screen, Urine Not Detected (Not Detect); Opiate Screen Urine Not Detected (Not Detect); Oxycodone Screen Urine Not Detected (Not Detect); Phencyclidine Screen Urine Not Detected (Not Detect)
--- OUTSIDE RECORDS SUMMARY | 2024-04-27 15:59 | XMS_ITS | Continuity of Care Document ---
Author Organization [facility] Robby Todd lt Address [address] [place] [address]- Care Team Providers Care News Librarian Name Role Phone Asa WILCOX, Rimma Valles Primary Care Physician [phone] [place] [facility] [place]16/[address] [facility] [place] Adult [address] [place] [address]- Allergies, Adverse Reactions, Alerts Substance Reaction Severity [...] 3Admin Note: AT WORK 05-14-12 4Result Comment: [id number] 5Admin Note: at work Medications Adderall 5 [...] 2, Maintenance,06/29/17 10:52:55, Route to Pharmacy Electronically, [id number], [facility]/pharmacy #[id number] Start Date: 06/29/17 Stop Date: 09/27/17 [...] Personnel Name: Asa WILCOX, Rimma Valles Position: [facility] PCO Associate Professional Member Role: PCP Address: Address: [address] [place] [id number]- Care Team Related Persons Name: CECELIA TAI Address: home [address] [address]
--- OUTSIDE RECORDS SUMMARY | 2024-04-27 16:00 | XMS_ITS | Continuity of Care Document ---
Author Organization [facility] Robby Todd Address [address] [place] [address]- Care Team Providers Care Biomedical Electronics Technician Name Role Phone Asa WILCOX, Rimma Valles Primary Care Physician [phone] Encounter [facility] [place] R [id number] Date(s): 11/16/23 - 12/24/23 [facility] [place] Adult [address] [place] [address]- Attending Physician: Chitra Richardson Referring Physician: Asa [...] 3Admin Note: AT WORK 05-14-12 4Result Comment: [id number] 5Admin Note: at work Medications Adderall 5 [...] 2, Maintenance,06/29/17 10:52:55, Route to Pharmacy Electronically, [id number], [facility]/pharmacy #[id number] [...] Personnel Name: Asa WILCOX, Rimma Valles Position: [facility] PCO Associate Professional Member Role: PCP Address: Address: [address] [place] [id number]- Care Team Related Persons Name: CECELIA TAI Address: home [address] [place] [address]
--- OUTSIDE RECORDS SUMMARY | 2024-04-27 16:00 | XMS_ITS | Continuity of Care Document ---
Author Organization [facility] Dusty Bustamante Todd lt Address [address] [place] [id number]- Care Team Providers Care Car Examiner Name Role Phone Asa WILCOX, Rimma Valles Primary Care Physician En[place] [facility] [place] Date(s): 11/17/23 - 12/17/23 [facility] Adult [address] [place] [address]- Attending Physician: Admtr, Ar8 Allergies, Adverse Reactions, [...] 3Admin Note: AT WORK 05-14-12 4Result Comment: [id number] 5Admin Note: at work Medications Adderall 5 [...] 2, Maintenance,06/29/17 10:52:55, Route to Pharmacy Electronically, [id number], [facility]/pharmacy #[id number] Start Date: 06/29/17 Stop Date: [...] study * Event Display: EKG Authored Date: [id number] Laboratory * Reena Lance: PERFORM Event Display: Laboratory Results Scanned Authored Date: [id number] Radiology * Ophelai Costa.: PERFORM Event Display: Radiology Results Scanned Authored Date: [id number] Patient Care team information Care Team Personnel Name: Rimma Bray NP Position: S PCO Associate Professional Member Role: PCP Address: Address: [address] [place] [address]- Care Team Related Persons Name: CECELIA TAI Address: home [address] [place] [address]
--- NOTE | 2024-04-27 16:07 | PC.NURSE ---
Care team at bedside
[2024-04-27 17:11] LABS: MANUAL DIFF FLAG NO
[2024-04-27 17:13] LABS: Basophils Absolute Auto 0.1 X10*3/uL (0.0-0.2); Eosinophils Absolute Auto 0.2 X10*3/uL (0.0-0.4); Eosinophils Percent Auto 2.5 % (0-4); Hematocrit 42.4 % (37.0-47.0); Hemoglobin 14.2 g/dl (12.0-16.0); Imm Gran Abs Auto 0.05 X10*3/uL (0.00-0.03); Imm Gran Pct Auto 0.6 % (0.0-0.4); Lymphocytes Absolute Auto 2.4 X10*3/uL (1.2-4.9); Lymphocytes Percent Auto 27.4 % (20-40); Mean Corpuscular HGB Conc 33.5 g/dl (31.0-35.0); Mean Corpuscular Hemoglobin 30.1 pg (27.0-33.0); Mean Corpuscular Volume 89.8 fL (80.0-98.0); Mean Platelet Volume 9.4 fL (9.4-12.3); Monocytes Absolute Auto 0.4 X10*3/uL (0.1-1.2); Monocytes Percent Auto 4.5 % (2-11); Neutrophils Absolute Auto 5.6 x10*3/uL (2.0-8.3); Platelet Count 445 X10*3/uL (160-400); Red Blood Count 4.72 X10*6/uL (4.20-5.50); Red Cell Distribution Width 11.9 % (11.0-16.0); White Blood Count 8.8 X10*3/uL (4.8-10.8)
[2024-04-27] MEDS: Nicotine 14 MG PATCH.TD24 TRANSDERMA (17:14)
--- NOTE | 2024-04-27 17:18 | PC.NURSE ---
Pt will be admitted inpt- awaiting a bed
[2024-04-27 17:31] LABS: Acetaminophen LAB < 3 mcg/mL (<30); Alanine Aminotransferase 29 U/L (0-31); Albumin Level 4.2 g/dL (3.5-5.0); Alkaline Phosphatase 85 U/L (39-117); Anion Gap 13 (12-20); Aspartate Amino Transferase 25 U/L (5-31); Bilirubin Direct < 0.2 mg/dL (0.0-0.5); Bilirubin Total 0.2 mg/dL (0.0-1.0); Blood Urea Nitrogen 7 mg/dL (9-16); Calcium 9.6 mg/dL (8.4-10.2); Carbon Dioxide 28 mmol/L (22-29); Chloride 104 mmol/L (96-108); Creatinine Clr Calc Pharmacy 107.4; Estimated Glomerular Filt Rate > 60; Ethanol < 10 mg/dL; Glucose Random 90 mg/dL (60-115); Magnesium 1.9 mg/dL (1.6-2.6); Potassium 4.3 mmol/L (3.3-5.1); Salicylate < 5.0 mg/dL (15-30); Sodium 141 mmol/L (135-145); Total Protein 7.8 g/dL (6.5-8.0)
[2024-04-27] MEDS: cloNIDine HCL 0.1 MG TABLET PO (18:33)
--- NOTE | 2024-04-27 18:49 | PHA.MEDREC ---
Pharmacy Consult ? Medication Reconciliation Pharmacy has reviewed the medication reconciliation done by nursing staff (Richelle Champion). Clonazepam 0.5 mg was put in as tid prn and Adderall 5 mg was put in as XR capsules. When questioned, nurse said that she called [facility] in [place] and got that info. Called [facility] in [place] and spoke to Kevin (pharmacy messenger) who confirmed that Clonazepam 0.5 mg BID prn and Adderall 5 mg TABLETS. Changes were made to orders (per Ruby Chavis's ok) and med rec.
[2024-04-27 20:30] VITALS: BP 123/72
[2024-04-27] MEDS: cloNIDine HCL 0.2 MG TABLET PO (20:30)
[2024-04-27] MEDS: clonazePAM 0.5 MG TABLET PO (20:30)
[2024-04-27] MEDS: lamoTRIgine 25 MG TABLET 150 MG PO (20:30)
[2024-04-27] MEDS: Nortriptyline HCl 25 MG CAPSULE 75 MG PO (20:30)
--- NOTE | 2024-04-28 | ECG_ITS ---
Test Reason : RULE OUT QTC PROLONGATION Blood Pressure : / mmHG Vent. Rate : 087 BPM Atrial Rate : 087 BPM P-R Int : 146 ms QRS Dur : 084 ms QT Int : 388 ms P-R-T Axes : 069 044 050 degrees QTc Int : 466 ms Normal sinus rhythm Normal ECG When compared with ECG of 18-OCT-2004 21:03, Vent. rate has increased BY 33 BPM QT has lengthened Referred By: Ruby Chavis Electronically Signed By:ABBY BRUMFIELD
[2024-04-28] MEDS: clonazePAM 0.5 MG TABLET PO ×2 (00:11→09:54)
[2024-04-28 00:20] VITALS: BP 114/76; PULSE 86; RESP 16; TEMP 36.9; O2SAT 100
[2024-04-28] MEDS: Amoxicillin/Potassium Clav 875 MG TABLET PO ×2 (06:28→18:42)
[2024-04-28 07:26] VITALS: RESP 14
--- NOTE | 2024-04-28 07:27 | PC.NURSE ---
Assumed care of patient at 0645, patient appears to be in no apparent distress this am, patient offers no complaints to this RN. Continue plan of care for inpatient bedsearch
[2024-04-28] MEDS: lamoTRIgine 25 MG TABLET 150 MG PO ×2 (08:05→21:13)
[2024-04-28] MEDS: Cariprazine HCl 1.5 MG CAPSULE PO (08:05)
[2024-04-28] MEDS: Amphetamine Mixed Salts 10 MG TABLET 5 MG PO ×2 (08:06→14:13)
[2024-04-28] MEDS: Nicotine 21 MG PATCH.TD24 TRANSDERMA (08:42)
[2024-04-28 08:47] VITALS: BP 112/76; PULSE 97; RESP 16; TEMP 36.7; O2SAT 97
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
--- NOTE | 2024-04-28 16:01 | PC.NURSE ---
per declines flu shot and reports she already received it
[2024-04-28 16:54] VITALS: BP 153/63
[2024-04-28] MEDS: cloNIDine HCL 0.1 MG TABLET PO (16:54)
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
[2024-04-28] MEDS: Nicotine Polacrilex 2 MG GUM 4 MG BUCCAL (19:41)
[2024-04-28 20:00] VITALS: BP 123/66; PULSE 108; TEMP 36.8; O2SAT 100
[2024-04-28 21:13] VITALS: BP 123/66
[2024-04-28] MEDS: cloNIDine HCL 0.2 MG TABLET PO (21:13)
[2024-04-28] MEDS: Nortriptyline HCl 25 MG CAPSULE 75 MG PO (21:13)
[2024-04-28] MEDS: clonazePAM 1 MG TABLET PO (23:33)
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
[2024-04-29] MEDS: Amoxicillin/Potassium Clav 875 MG TABLET PO ×2 (08:57→20:24)
[2024-04-29] MEDS: Amphetamine Mixed Salts 10 MG TABLET 5 MG PO ×2 (08:58→12:32)
[2024-04-29] MEDS: Nicotine 21 MG PATCH.TD24 TRANSDERMA (08:58)
[2024-04-29] MEDS: Cariprazine HCl 1.5 MG CAPSULE PO (08:58)
[2024-04-29] MEDS: lamoTRIgine 25 MG TABLET 150 MG PO (08:58)
[2024-04-29 09:00] VITALS: BP 114/61; PULSE 89; RESP 16; TEMP 36.4; O2SAT 98
[2024-04-29 09:07] LABS: Cholesterol 166 mg/dL (<200); HDL Cholesterol 53 mg/dL (>40); LDL Cholesterol Calculated 92 mg/dL (<100); Magnesium 2.2 mg/dL (1.6-2.6); Triglycerides 106 mg/dL (<150)
[2024-04-29 09:28] LABS: Estimated Average Glucose 94 mg/dL; Hemoglobin A1C 142.3248 umol/L; Hemoglobin A1c % 4.9 % (<6.0); Total Hemoglobin (HGBA1C) 4773.4608 umol/L
[2024-04-29 09:54] LABS: Free T4 (Free Thyroxine) 0.98 ng/dL (0.71-1.85); Thyroid Stimulating Hormone 2.75 uIU/mL (0.32-4.0)
[2024-04-29 10:05] LABS: Folate 7.8 ng/mL (> or = 4.0); Vitamin B12 690 pg/mL (200-900)
[2024-04-29 20:00] VITALS: BP 113/63; PULSE 94; TEMP 36.6; O2SAT 100
[2024-04-29] MEDS: lamoTRIgine 100 MG, lamoTRIgine 50 MG 150 MG PO (20:21)
[2024-04-29] MEDS: Nicotine Polacrilex 2 MG GUM 4 MG BUCCAL (20:21)
[2024-04-29 20:22] VITALS: BP 113/63
[2024-04-29] MEDS: cloNIDine HCL 0.2 MG TABLET PO (20:22)
[2024-04-29] MEDS: Nortriptyline HCl 25 MG CAPSULE 75 MG PO (20:22)
[2024-04-29] MEDS: clonazePAM 1 MG TABLET PO (21:44)
[2024-04-29] MEDS: Milk of Magnesia 30 ML ORAL.SUSP PO (21:44)
[2024-04-30] MEDS: Nicotine 21 MG PATCH.TD24 TRANSDERMA (06:42)
[2024-04-30 08:00] VITALS: BP 107/61; PULSE 86; RESP 16; TEMP 36.6; O2SAT 100
[2024-04-30] MEDS: lamoTRIgine 100 MG, lamoTRIgine 50 MG 150 MG PO ×2 (08:53→20:44)
[2024-04-30] MEDS: Cariprazine HCl 3 MG CAPSULE PO (08:53)
[2024-04-30] MEDS: Dextroamphetamine/Amphetamine XR 10 MG CAP.ER.24H PO (08:53)
[2024-04-30] MEDS: Amoxicillin/Potassium Clav 875 MG TABLET PO ×2 (08:54→20:43)
[2024-04-30] MEDS: Amphetamine Mixed Salts 10 MG TABLET 5 MG PO (13:11)
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
[2024-04-30 20:00] VITALS: BP 128/70; PULSE 88; TEMP 37.2; O2SAT 100
[2024-04-30] MEDS: Nortriptyline HCl 25 MG CAPSULE 75 MG PO (20:42)
[2024-04-30 20:44] VITALS: BP 128/70
[2024-04-30] MEDS: cloNIDine HCL 0.2 MG TABLET PO (20:44)
[2024-04-30] MEDS: clonazePAM 1 MG TABLET PO (23:33)
[2024-05-01 01:23] VITALS: BP 103/56
[2024-05-01] MEDS: cloNIDine HCL 0.1 MG TABLET PO (01:23)
[2024-05-01 08:00] VITALS: BP 103/62; PULSE 81; RESP 16; TEMP 36.4; O2SAT 99
[2024-05-01] MEDS: Cariprazine HCl 3 MG CAPSULE PO (08:31)
[2024-05-01] MEDS: Amoxicillin/Potassium Clav 875 MG TABLET PO ×2 (08:31→20:30)
[2024-05-01] MEDS: lamoTRIgine 100 MG, lamoTRIgine 50 MG 150 MG PO ×2 (08:31→20:29)
[2024-05-01] MEDS: Nicotine 21 MG PATCH.TD24 TRANSDERMA (08:32)
[2024-05-01] MEDS: Dextroamphetamine/Amphetamine XR 10 MG CAP.ER.24H PO (08:32)
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
[2024-05-01] MEDS: Nicotine Polacrilex 2 MG GUM 4 MG BUCCAL ×2 (11:24→20:32)
[2024-05-01] MEDS: Ibuprofen 400 MG TABLET PO (13:10)
[2024-05-01] MEDS: Amphetamine Mixed Salts 10 MG TABLET PO (13:10)
[2024-05-01] MEDS: Magnesium Hydrox/Alum Hydrox 30 ML ORAL.SUSP PO (14:50)
[2024-05-01 20:00] VITALS: BP 119/60; PULSE 90; TEMP 36.9; O2SAT 98
[2024-05-01 20:29] VITALS: BP 119/60
[2024-05-01] MEDS: Nortriptyline HCl 25 MG CAPSULE 75 MG PO (20:29)
[2024-05-01] MEDS: cloNIDine HCL 0.2 MG TABLET PO (20:29)
[2024-05-01] MEDS: clonazePAM 1 MG TABLET PO (22:12)
[2024-05-01] MEDS: traZODone HCL 50 MG TABLET PO (23:04)
[2024-05-02] MEDS: traZODone HCL 50 MG TABLET PO ×3 (03:47→23:39)
[2024-05-02] MEDS: Nicotine 21 MG PATCH.TD24 TRANSDERMA (05:23)
[2024-05-02] MEDS: Nicotine Polacrilex 2 MG GUM 4 MG BUCCAL ×2 (07:22→11:31)
[2024-05-02] MEDS: Amoxicillin/Potassium Clav 875 MG TABLET PO ×2 (08:15→20:31)
[2024-05-02] MEDS: Cariprazine HCl 3 MG CAPSULE PO (08:31)
[2024-05-02] MEDS: Dextroamphetamine/Amphetamine XR 10 MG CAP.ER.24H PO (08:31)
[2024-05-02] MEDS: lamoTRIgine 100 MG, lamoTRIgine 50 MG 150 MG PO ×2 (08:31→20:31)
[2024-05-02 08:59] VITALS: BP 115/55; PULSE 80; TEMP 36.8; O2SAT 99
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
[2024-05-02] MEDS: Amphetamine Mixed Salts 10 MG TABLET PO (12:41)
[2024-05-02] MEDS: Magnesium Hydrox/Alum Hydrox 30 ML ORAL.SUSP PO (17:04)
[2024-05-02 20:00] VITALS: BP 130/71; PULSE 84; RESP 16; TEMP 36.9; O2SAT 96
[2024-05-02 20:31] VITALS: BP 135/74
[2024-05-02] MEDS: cloNIDine HCL 0.2 MG TABLET PO (20:31)
[2024-05-02] MEDS: Nortriptyline HCl 25 MG CAPSULE 75 MG PO (20:32)
[2024-05-02] MEDS: clonazePAM 1 MG TABLET PO (21:52)
[2024-05-03 08:00] VITALS: BP 114/66; PULSE 97; RESP 18; TEMP 36.4; O2SAT 98
[2024-05-03] MEDS: lamoTRIgine 100 MG, lamoTRIgine 50 MG 150 MG PO (08:09)
[2024-05-03] MEDS: Amoxicillin/Potassium Clav 875 MG TABLET PO (08:09)
[2024-05-03] MEDS: Dextroamphetamine/Amphetamine XR 10 MG CAP.ER.24H PO (08:09)
[2024-05-03] MEDS: Cariprazine HCl 3 MG CAPSULE PO (08:09)
[2024-05-03] MEDS: Nicotine 21 MG PATCH.TD24 TRANSDERMA (08:46)
[2024-05-03] MEDS: Naloxone HCl Nasal TAKE HOME 4 MG SPRAY 8 MG NOSTRILALT (09:58)
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
== END 2024-05-03 11:25 | disposition home or self-care (01) | DRG 885 ==
LOC: HO.ED 17:46 → HO.PM5 04-28 10:24
PROVIDERS: Physician Assistant; Admitting Provider Clinical Nurse Specialist Psychiatric/Mental Health, Adult; Emergency Provider Student in an Organized Health Care Education/Training Program; Visit Provider Clinical Nurse Specialist Psychiatric/Mental Health, Adult
DX: F31.9 Bipolar disorder, unspecified (principal); R45.851 Suicidal ideations; F43.10 Post-traumatic stress disorder, unspecified; F90.9 Attention-deficit hyperactivity disorder, unspecified type; F17.210 Nicotine dependence, cigarettes, uncomplicated; Z71.6 Tobacco abuse counseling; Z79.899 Other long term (current) drug therapy
CPT/HCPCS: 36415; 80048; 80061; 80076; 80143; 80179; 80307; 81003; 81025; 82607; 82746; 83036; 83735; 84439; 84443; 85025; 93005; 99285; S9485

== ENCOUNTER → 2024-04-28 10:17 | Outpatient (BNV) | payer MEDICARE, MEDICAID, SELFPAY | PROVIDERS: Admitting Provider Clinical Nurse Specialist Psychiatric/Mental Health, Adult; Emergency Provider Student in an Organized Health Care Education/Training Program; Visit Provider Clinical Nurse Specialist Psychiatric/Mental Health, Adult | DX: F31.63 Bipolar disorder, current episode mixed, severe, without psychotic features (principal); F43.11 Post-traumatic stress disorder, acute; F90.9 Attention-deficit hyperactivity disorder, unspecified type | CPT/HCPCS: 90792; 99231; 99232; 99239 ==

== ENCOUNTER 2024-05-24 09:00 | Outpatient (RCR) | payer MEDICARE, MEDICAID, SELFPAY ==
[2024-05-23 15:20] VITALS: BP 118/82; PULSE 88; RESP 18; TEMP 37.2
[2024-05-23 15:21] VITALS: BMI 30.9
--- NOTE | 2024-05-23 16:02 | PC.ADMIT ---
Charleen is a 39 year old female diagnosed with Bipolar Disorder, she was recently discharge from [facility] inpatient psych [place]. She was hospitalized due to suicidal ideation secondary to changes in her mood and interpersonal stressors prior to admission. Upon approach Charleen is calm and pleasant, she is well groomed, speech is clear and concise. When asked how she felt stated Good, she reports recently being discharged from , reports that struggling with her mood, increase depression and anxiety. She also reports that prior to being hospitalized she relapse on cocaine. She is currently endorsing 4/10 anxiety, she denied feeling depressed, denied auditory/visual hallucinations. When asked if she had any thoughts of wanting to hurt/kill self stated No. When asked if she had any thoughts of wanting to hurt or kill others stated No. She reports she needed a step down after being discharge stated I want to work on my coping skills, I want to have structure. She reports she has been journaling stated Coloring has really helped. Charleen reports she has a good support system stated My mom and my friend Lor are really supportive. Charleen appears hopeful, she was given a copy of her safety plan.
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
== END 2024-05-24 23:59 | disposition home or self-care (01) ==
LOC: HO.PHPA 09:00
PROVIDERS: Visit Provider Psychiatry & Neurology Psychiatry
DX: F43.10 Post-traumatic stress disorder, unspecified (principal); F31.60 Bipolar disorder, current episode mixed, unspecified; F90.9 Attention-deficit hyperactivity disorder, unspecified type
CPT/HCPCS: 90791; 90853

== ENCOUNTER → 2024-05-24 09:00 | Outpatient (BNV) | payer MEDICARE, MEDICAID, SELFPAY | PROVIDERS: Visit Provider Psychiatry & Neurology Psychiatry | DX: F14.10 Cocaine abuse, uncomplicated (principal); F17.200 Nicotine dependence, unspecified, uncomplicated | CPT/HCPCS: 90792 ==